=== PATIENT | female | born 1940 | race Caucasian/White ===

== ENCOUNTER → 2016-06-01 | Outpatient (CLI) | payer OTHER ==
[~2016-06-01] MED LIST: AMT50 PO; ATOR-22 PO; B-COCAP2 PO; CALCIUM PO; CHOL1000 PO; COEN50CA22 PO; FRRS300 PO; FSMD/70 PO; IMT100 PO; MULT-506 PO; TAMO20TA47 PO; VITAMIN PO
[2016-06-01 12:59] LABS: BASO % 0.6 %; BASO ABS # 0.02 K/uL (0-0.2); COMPLETE YES; EOS % 8.8 %; HEMATOCRIT 35.8 % (37-47); LYMPH % 39.5 %; LYMPH ABS # 1.43 K/uL (1.2-3.4); MEAN CELL VOLUME 101.1 fL (80-100); MEAN CORPUSCULAR HEMOGLOBIN 33.9 pg (25-34); MEAN CORPUSCULAR HGB CONC 33.5 g/dl (32-36); MEAN PLATELET VOLUME 11.3 fL (7.4-10.4); MONO % 14.9 %; NEUT % 36.2 %; PLATELET COUNT 199 K/uL (130-400); RED BLOOD COUNT 3.54 M/uL (4.2-5.4); WHITE BLOOD COUNT 3.62 K/uL (4.8-10.8)
[2016-06-01 13:30] LABS: ALB/GLOB RATIO 1.1 (0.9-2); ALKALINE PHOSPHATASE 36 U/L (45-117); ALT/SGPT 24 U/L (12-78); AST/SGOT 27 U/L (15-37); BLOOD UREA NITROGEN 7 mg/dl (7-18); BUN/CREATININE RATIO 9.7 (10-20); CALCIUM 8.1 mg/dl (8.5-10.1); CARBON DIOXIDE 25 mmol/L (21-32); CHLORIDE 108 mmol/L (98-107); CHOLESTEROL 171 mg/dl (0-200); CHOLESTEROL/HDL RATIO 1.7; CREATININE 0.72 mg/dl (0.60-1.20); GLUCOSE 88 mg/dl (70-99); HDL CHOLESTEROL 103 mg/dl; LDL CHOLESTEROL CALCULATED 58 mg/dl; POTASSIUM 4.4 mmol/L (3.5-5.1); SODIUM 140 mmol/L (136-145); TRIGLYCERIDES 48 mg/dl (0-150); VERY LOW DENSITY LIPOPROT CALC 10 mg/dl
== END | disposition home or self-care (01) ==
LOC: C.LABPVFM 07:25
PROVIDERS: ATTEND Family Medicine
DX: D50.9 Iron deficiency anemia, unspecified (principal); E78.5 Hyperlipidemia, unspecified; E83.51 Hypocalcemia

== ENCOUNTER → 2016-06-21 | Outpatient (CLI) | payer OTHER | END | disposition home or self-care (01) | LOC: C.MAMM 08:16 | PROVIDERS: ATTEND Family Medicine | DX: M81.0 Age-related osteoporosis without current pathological fracture (principal) ==

== ENCOUNTER → 2016-07-14 | Outpatient (CLI) | payer OTHER ==
[2016-07-14 12:11] LABS: BASO % 0.4 %; BASO ABS # 0.02 K/uL (0-0.2); COMPLETE YES; EOS % 6.2 %; HEMATOCRIT 37.5 % (37-47); LYMPH % 38.9 %; LYMPH ABS # 1.96 K/uL (1.2-3.4); MEAN CELL VOLUME 99.7 fL (80-100); MEAN CORPUSCULAR HGB CONC 33.1 g/dl (32-36); MEAN PLATELET VOLUME 11.2 fL (7.4-10.4); MONO % 13.3 %; NEUT % 41.2 %; PLATELET COUNT 214 K/uL (130-400); RED BLOOD COUNT 3.76 M/uL (4.2-5.4); WHITE BLOOD COUNT 5.04 K/uL (4.8-10.8)
[2016-07-14 12:22] LABS: ALT/SGPT 24 U/L (12-78); BLOOD UREA NITROGEN 9 mg/dl (7-18); BUN/CREATININE RATIO 11.9 (10-20); CALCIUM 8.7 mg/dl (8.5-10.1); CARBON DIOXIDE 29 mmol/L (21-32); CHLORIDE 107 mmol/L (98-107); CREATININE 0.74 mg/dl (0.60-1.20); GLUCOSE 92 mg/dl (70-99); POTASSIUM 4.1 mmol/L (3.5-5.1); SODIUM 142 mmol/L (136-145)
[2016-07-14 12:25] LABS: ALKALINE PHOSPHATASE 36 U/L (45-117); AST/SGOT 22 U/L (15-37)
== END | disposition home or self-care (01) ==
LOC: C.LABPVFM 07:25
PROVIDERS: ATTEND Internal Medicine Hematology & Oncology
DX: D05.11 Intraductal carcinoma in situ of right breast (principal)

== ENCOUNTER → 2016-12-01 | Outpatient (CLI) | payer OTHER ==
[2015-12-09 13:07] VITALS: BP 118/72; PULSE 77
[2016-12-01 13:22] VITALS: BP 143/75; PULSE 68; TEMP 36.8; O2SAT 95
--- NOTE | 2016-12-01 14:53 | Radiation Oncology Follow-Up ---
Radiation Oncology Follow-Up Date of Visit Dec 01, 2016. Reason For Visit Annual follow-up Radiation Completion Date 03/15/14 Diagnosis (1) Carcinoma in situ Status: Acute Onset Date: 02/10/2014 Stage: 0 Permanent Comment: Staging: Right breast, DCIS, grade 3, ER/CA positive, stage 0 Treatment: 1. Lumpectomy/SLN 2. Radiation therapy - APBI - 3850 cGy - 03/15/2014 3. Currently on Tamoxifen. Other Notes: Family history of breast cancer Abnormal right breast mammogram 12/16/2013 showing microcalcifications status post stereotactic biopsy 01/06/2014 revealing DCIS estrogen receptor positive and progesterone receptor positive Last Edited By: Meng Godfrey on Dec 10, 2015 08:24 Interim History She had an abnormal mammogram 01/15/2016. She had an ultrasound-guided biopsy of the solid versus cystic mass in the 6 o'clock position of the right breast. Path report revealed benign appearing lymph node tissue with no lymphoid hyperplasia and focal changes of her metastatic lymphadenitis. Specimen [id number] -[id number]. She had noted no masses on self-examination. She's had no areas of tenderness. There are been no changes of the axilla and no swelling of her arm. She is on tamoxifen and denies side effects. Allergies Coded Allergies: Amoxicillin (Verified Allergy, Unknown, nausea, hives, 01/29/14) Codeine (Verified Adverse Reaction, Mild, MIGRAINES, 01/29/14) Morphine (Verified Adverse Reaction, Mild, MIGRAINES, 01/29/14) Home Medications Scheduled Alendronate/Cholecalciferol (Fosamax+D 70MG/2800 Iu), 1 TABLET PO WK Amitriptyline Hcl (Elavil), 50 MG PO HS Atorvastatin (Lipitor), 20 MG PO DAILY Cholecalciferol (Vitamin D3), 1 TAB PO 2XWK Coenzyme Q10 (Ubidecarenone) (Coq10), 1 CAP PO DAILY Ferrous Sulfate (Ferrous Sulfate), 325 MG PO Q2D Multivitamin (Multivitamin), 1 TAB PO DAILY Sumatriptan Succinate (Imitrex), 100 MG PO PRN Tamoxifen (Nolvadex), 20 MG PO DAILY Vitamin B Cmplx/Vitc/Folic Ac (Nephrocaps), 1 CAP PO DAILY [calcium & vitamin d3], 1 TAB PO BID Review of Systems Gastrointestinal: Symptoms: WNL Oral: Symptoms: No Problems Respiratory: Symptoms: WNL Other Respiratory: Has "dry cough every once in a while" Urinary: Symptoms: WNL Skin: Symptoms: No Problems Breast: Right Upper Arm Measurement: 29.4 Right Mid Arm Measurement: 23.3 Right Wrist Measurement: 16.6 Left Upper Arm Measurement: 31.2 Left Mid Arm Measurement: 23.8 Left Wrist Measurement: 16.1 Arm Dominence: Right Physical Exam Vital Signs Date Time Temp Pulse Resp B/P (MAP) Pulse Ox O2 Delivery O2 Flow Rate FiO2 12/01/16 13:22 36.8 68 16 143/75 95 Pain: Pain Location: None Patient Pain Scale: 0 - 10 Initial Pain Intensity: 0.0 Fatigue: None General Appearance: no apparent distress Eyes: normal inspection, EOMI ENT: normal ENT inspection, hearing grossly normal Neck: supple, no adenopathy, thyroid normal Respiratory/Chest: lungs clear, no respiratory distress, no accessory muscle use Breast: Breast examination reveals well-healed incisions of the right breast. There is a fibrous tissue along the lateral aspect of the breast in the area of her incision. There are no masses or tenderness and no axillary adenopathy. She has no skin retractions or nipple changes. There is no telangiectasia. Using the Holbrook score cosmesis she has a good outcome. The left breast showed no masses or tenderness and no axillary adenopathy. Cardiovascular: regular rate, rhythm, no gallop, no murmur Abdomen: non tender, soft Extremities: no pedal edema Neurologic/Psychiatric: no motor/sensory deficits, alert, normal mood/affect Skin: warm/dry Additional Studies Patient: SIMONA WILSON [facility] Rec: [id number] Address1: [address] [place] [address] Address2: [facility] ID: [id number] Date: 1940 Sex: F Ref Phy: Att Phy: Haydee Brower PA-C Frida Phy: Abigail Esparza M.D. Inter Phy: Ivette Sun MD [facility] Zip: [place] [address] SC: [place] Report #: [id number] Fiscal Accountant: MARCE Diagnosis: RIGHT MASS Service Date: 01/15/16 MNE: [id number] Ordering Dr: Haydee Brower PA-C CC: Haydee Brower PA-C CONF: DICTATED BY: Ivette Sun MD MAMMOGRAPHY REPORT UNILATERAL RIGHT DIGITAL DIAGNOSTIC MAMMOGRAM: 01/15/2016 CLINICAL HISTORY: Status post ultrasound-guided core needle biopsy in the 6:00 right breast. Comparison is made to exams dated: 01/11/2016 mammogram, 01/07/2015 mammogram, localization, 01/06/2014 stereotactic biopsy, 12/16/2013 mammogram, and mammogram - [facility]. FINDINGS: Please refer to the report from right breast ultrasound guided core biopsy performed at the same time for full detail. IMPRESSION: POST PROCEDURE IMAGING FOR MARKER PLACEMENT Please refer to the report from right breast ultrasound guided core biopsy performed at the same time for full detail. Approximately 10% of breast cancers are not detected with mammography. A negative mammographic report should not delay biopsy if a clinically suggestive mass is present. Ivette Sun M.D. ay/:01/15/2016 09:26:46 Risk Adjustment Specialist: Ro GIRON(Dao)(Sabino), [facility] BI-RADS Code: Post Procedure Imaging For Marker Placement Dictated by: Ivette Sun MD Signed by: Ivette Sun MD [facility] SURGICAL PATHOLOGY REPORT Name SIMONA WILSON Case: [id number] SURGICAL PATHOLOGY REPORT Page 2 of 3 [place] [address] Wojciech Perez M.D. mine safety engineer PATHOLOGY REPORT SURGICAL PATHOLOGY REPORT Page 1 of 1 Name SIMONA WILSON Age/Sex 75/F Location: C.MAMM MR# [id number] : 1940 Rm/Bed Physician: Haydee Brower PA-C Case: [id number] Received 01/15/16 Specimen Date 01/15/16 CLINICAL HISTORY Right 6 oclock breast mass, rule out fibroadenoma versus cancer (history of right DCIS 2 years ago). GROSS DESCRIPTION US-GUIDED CORE BIOPSY RIGHT BREAST 6 OCLOCK The specimen is received in a container labeled as right breast with patient name Simona Wilson The specimen consists of six cylindrical fragments of yellow and dark red soft tissue which range from 0.2 to 1.5 cm in length and average 0.1 cm in diameter. The specimen is entirely submitted in a single cassette for levels. The specimen is fixed in formalin for a total of 59 hours. SH/mas MICROSCOPIC DESCRIPTION The specimen consists of a mixture of adipose and lymph node tissue. The lymph node sinuses are open. There seems to be an intact follicular and pericortical architecture. Focally there are increased numbers of histiocytes with increased brownish cytoplasmic pigment. An iron stain is negative. No polarizable material is noted. No granuloma formation is present. CD3, CD20 and PAX5 immunostains show an appropriate distribution of T-cells and B-cells into follicular and pericortical regions. A BCL2 immunostain shows positive staining in B cells but these areas are consistent with primary follicles and not germinal centers. A S100 immunostain highlights small groups of positive cells in keeping with interdigitating dendritic cells and/or Langerhans cells. No metastatic carcinoma is identified. The findings could be livestock sales representative of dermatopathic lymphadenitis/ lymphadenopathy which is associated with lymph nodes draining sites of skin irritation, inflammation or infection. Immunohistochemical stains at [facility] ([facility]) are performed for diagnostic reasons (i.e. detection of malignancy, tumor subtyping, infection identification), therapy selection (i.e. estrogen receptor) and genetic disorder evaluation (i.e. Maynard syndrome). The quantity and specific types of immunohistochemistry stains are purposely chosen in the context of the clinical history, morphologic findings and best clinical practice. Immunohistochemical stains are performed at [facility] on a [employer] automated system with performance determined by the [facility] Laboratory. Some stains may be performed by other laboratories ([employer], [facility], [facility] or [facility] ) with development and performance characteristics determined by that laboratory. When necessary, on-line positive controls are reviewed at that particular laboratory. These tests have not been cleared or approved for specific use by the U.S. Food and Drug Administration. The FDA has determined that such approval is not necessary. The test is used for clinical purposes. It should not be regarded as investigational or for research. This laboratory is certified under CLIA 1988 as qualified to perform high complexity testing. Immunohistochemistry performed on decalcified specimens is done with antigen retrieval which has been internally validated in the [facility] laboratory. Immunocytochemistry may be performed on alcohol fixed smears, cytospins or Thin Prep slides. Immunocytochemistry on all of these types of slides has been internally validated in the [facility] laboratory. FINAL DIAGNOSIS BREAST, RIGHT, 6 OCLOCK, ULTRASOUND GUIDED CORE BIOPSY: 1. BENIGN APPEARING LYMPH NODE TISSUE WITH LYMPHOID HYPERPLASIA AND FOCAL CHANGES OF DERMATOPATHIC LYMPHADENITIS. 2. SEE MICROSCOPIC DESCRIPTION FOR FURTHER DETAILS. PM/bf COPIES TO Abigail Esparza M.D. [address] [place] [id number] [facility], ([facility]) , Haydee Brower PA-C [address] [place] [id number] Signed: <signature on file> 01/19/16 Wojciech Perez M.D. Assessment & Plan Plan: Continue with mammography. She has a mammogram scheduled for December. She continues on tamoxifen. Continue follow-up with Dr. Romero and her primary care physician. We asked her to return to our office in 1 year. She may call if she has any questions or concerns. Total Time In Follow-Up I spent 20 minutes speaking to the patient performing examination. I spent 15 minutes reviewing information and completing this note. Copy To Abigail Esparza M.D.; Galo Contreras D.O. 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
== END | disposition home or self-care (01) ==
LOC: C.ONC 13:18
PROVIDERS: ATTEND Physician Assistant Medical
DX: Z08 Encounter for follow-up examination after completed treatment for malignant neoplasm (principal); Z92.3 Personal history of irradiation; Z85.89 Personal history of malignant neoplasm of other organs and systems

== ENCOUNTER → 2016-12-06 | Outpatient (CLI) | payer OTHER ==
[2016-12-06 13:00] LABS: BASO % 0.3 %; BASO ABS # 0.02 K/uL (0-0.2); COMPLETE YES; EOS % 3.3 %; HEMATOCRIT 37.5 % (37-47); IG% 0.1 %; LYMPH % 23.2 %; LYMPH ABS # 1.82 K/uL (1.2-3.4); MEAN CELL VOLUME 104.5 fL (80-100); MEAN CORPUSCULAR HEMOGLOBIN 33.4 pg (25-34); MEAN PLATELET VOLUME 12.3 fL (7.4-10.4); NEUT % 62.1 %; PLATELET COUNT 195 K/uL (130-400); RED BLOOD COUNT 3.59 M/uL (4.2-5.4); WHITE BLOOD COUNT 7.83 K/uL (4.8-10.8)
[2016-12-06 13:05] LABS: ALT/SGPT 22 U/L (12-78); BLOOD UREA NITROGEN 8 mg/dl (7-18); BUN/CREATININE RATIO 11.6 (10-20); CALCIUM 8.4 mg/dl (8.5-10.1); CARBON DIOXIDE 29 mmol/L (21-32); CHLORIDE 107 mmol/L (98-107); CHOLESTEROL 126 mg/dl (0-200); CREATININE 0.69 mg/dl (0.60-1.20); GLUCOSE 85 mg/dl (70-99); SODIUM 139 mmol/L (136-145)
[2016-12-06 13:08] LABS: ALKALINE PHOSPHATASE 33 U/L (45-117); AST/SGOT 23 U/L (15-37); HDL CHOLESTEROL 63 mg/dl; LDL CHOLESTEROL CALCULATED 51 mg/dl; TRIGLYCERIDES 59 mg/dl (0-150); VERY LOW DENSITY LIPOPROT CALC 12 mg/dl
== END | disposition home or self-care (01) ==
LOC: C.LABPVFM 07:27
PROVIDERS: ATTEND Family Medicine
DX: E78.5 Hyperlipidemia, unspecified (principal)

== ENCOUNTER → 2017-01-09 | Outpatient (CLI) | payer OTHER ==
[2017-01-09 18:20] LABS: BASO % 0.6 %; BASO ABS # 0.03 K/uL (0-0.2); COMPLETE YES; EOS % 4.8 %; HEMATOCRIT 35.5 % (37-47); IG% 0.2 %; LYMPH % 40.1 %; LYMPH ABS # 2.18 K/uL (1.2-3.4); MEAN CELL VOLUME 102.9 fL (80-100); MEAN CORPUSCULAR HGB CONC 32.1 g/dl (32-36); MEAN PLATELET VOLUME 11.1 fL (7.4-10.4); MONO % 12.5 %; NEUT % 41.8 %; PLATELET COUNT 221 K/uL (130-400); RED BLOOD COUNT 3.45 M/uL (4.2-5.4); WHITE BLOOD COUNT 5.43 K/uL (4.8-10.8)
[2017-01-09 18:25] LABS: ALT/SGPT 21 U/L (12-78); BLOOD UREA NITROGEN 9 mg/dl (7-18); BUN/CREATININE RATIO 11.8 (10-20); CALCIUM 8.7 mg/dl (8.5-10.1); CARBON DIOXIDE 30 mmol/L (21-32); CHLORIDE 103 mmol/L (98-107); GLUCOSE 93 mg/dl (70-99); POTASSIUM 4.4 mmol/L (3.5-5.1); SODIUM 138 mmol/L (136-145)
[2017-01-09 18:28] LABS: ALKALINE PHOSPHATASE 37 U/L (45-117); AST/SGOT 22 U/L (15-37)
== END | disposition home or self-care (01) ==
LOC: C.LABPVFM 14:14
PROVIDERS: ATTEND Internal Medicine Hematology & Oncology
DX: D05.11 Intraductal carcinoma in situ of right breast (principal)

== ENCOUNTER → 2017-01-17 | Outpatient (CLI) | payer OTHER ==
--- NOTE | 2017-01-18 07:57 | MAMMOGRAPHY REPORT ---
BILATERAL DIGITAL SCREENING MAMMOGRAM TOMOSYNTHESIS WITH CAD: 01/17/2017 CLINICAL HISTORY: Asymptomatic. Personal history of breast cancer. TECHNIQUE: Breast tomosynthesis in addition to standard 2D mammography was performed. Current study was also evaluated with a Computer Aided Detection (CAD) system. COMPARISON: Comparison is made to exams dated: 01/15/2016 mammogram, 01/15/2016 ultrasound biopsy, 12/23 ultrasound, 01/11/2016 mammogram, 07/09/2015 mammogram, and 01/07/2015 mammogram - [facility]. BREAST COMPOSITION: There are scattered areas of fibroglandular density in both breasts. FINDINGS: There is expected architectural distortion and surgical clips in the upper outer posterior right breast, at the site of prior lumpectomy. A stable biopsy marker clip is seen in the central ri ght breast. There are a few scattered stable punctate microcalcifications bilaterally. No new suspi cious mass, architectural distortion or cluster of suspicious microcalcifications is seen. IMPRESSION: ACR BI-RADS CATEGORY 1: NEGATIVE There is no mammographic evidence of malignancy. A 1 year screening mammogram is recommended. The pa tient will receive written notification of the results. Approximately 10% of breast cancers are not detected with mammography. A negative mammographic report should not delay biopsy if a clinically suggestive mass is present. Ivette Sun M.D. ay/:01/17/2017 22:09:55 Risk Prevention Engineer: Hyacinth MARTINEZ)(Sabino), [facility] letter sent: Normal 1/2 BI-RADS Code: ACR BI-RADS Category 1: Negative
== END | disposition home or self-care (01) ==
LOC: C.MAMM 10:38
PROVIDERS: ATTEND Internal Medicine Hematology & Oncology
DX: Z12.31 Encounter for screening mammogram for malignant neoplasm of breast (principal); Z85.3 Personal history of malignant neoplasm of breast

== ENCOUNTER → 2017-06-08 | Outpatient (CLI) | payer OTHER ==
[~2017-06-08] MED LIST changes: -TAMO20TA47 PO; +TAMO20TA9 PO
[2017-06-08 13:21] LABS: ALBUMIN 3.3 gm/dl (3.4-5.0); ALKALINE PHOSPHATASE 35 U/L (45-117); ALT/SGPT 22 U/L (12-78); AST/SGOT 19 U/L (15-37); BLOOD UREA NITROGEN 10 mg/dl (7-18); CALCIUM 8.5 mg/dl (8.5-10.1); CARBON DIOXIDE 29 mmol/L (21-32); CHOLESTEROL 139 mg/dl (0-200); GLUCOSE 91 mg/dl (70-99); LDL CHOLESTEROL CALCULATED 53 mg/dl; SODIUM 140 mmol/L (136-145); TOTAL PROTEIN 6.9 gm/dl (6.4-8.2)
== END | disposition home or self-care (01) ==
LOC: C.LABPVFM 07:37
PROVIDERS: ATTEND Family Medicine
DX: D50.9 Iron deficiency anemia, unspecified (principal); E78.5 Hyperlipidemia, unspecified; D05.10 Intraductal carcinoma in situ of unspecified breast; R51 Headache; K21.9 Gastro-esophageal reflux disease without esophagitis

== ENCOUNTER → 2017-06-13 | Outpatient (CLI) | payer OTHER ==
--- NOTE | 2017-06-13 12:04 | DIAGNOSTIC IMAGING REPORT ---
CHEST 2 VIEWS ROUTINE HISTORY: Short of breath. COMPARISON: None. FINDINGS: No focal lung consolidations to suggest pneumonia. The lungs are mildly hyperexpanded. The heart is normal in size. No pleural effusions. No pneumothorax. Small biapical densities likely represent scarring. 5 mm nodular density within the periphery of the left midlung zone. This is denser than bone and may represent a calcified granuloma. IMPRESSION: No focal lung consolidations to suggest pneumonia. Electronically signed by: Rob Mejias M.D. 06/13/2017 12:03 PM Dictated Date/Time: 06/13/2017 11:58 AM
== END | disposition home or self-care (01) ==
LOC: C.RADPV 11:26
PROVIDERS: ATTEND Family Medicine
DX: R06.02 Shortness of breath (principal)

== ENCOUNTER → 2017-07-03 | Outpatient (CLI) | payer OTHER ==
[2017-07-03 17:55] LABS: BASO % 0.6 %; BASO ABS # 0.04 K/uL (0-0.2); EOS % 5.3 %; EOS ABS # 0.36 K/uL (0-0.5); HEMATOCRIT 36.7 % (37-47); HEMOGLOBIN 12.1 g/dL (12.0-16.0); IG# 0.02 K/uL (0.00-0.02); LYMPH % 31.1 %; MEAN CELL VOLUME 101.9 fL (80-100); MEAN CORPUSCULAR HEMOGLOBIN 33.6 pg (25-34); MEAN PLATELET VOLUME 11.8 fL (7.4-10.4); MONO ABS # 0.81 K/uL (0.11-0.59); NEUT % 50.7 %; NEUT ABS # 3.42 K/uL (1.4-6.5); PLATELET COUNT 199 K/uL (130-400); RED CELL DISTRIBUTION WIDTH CV 13.7 % (11.5-14.5); RED CELL DISTRIBUTION WIDTH SD 51.4 fL (36.4-46.3); WHITE BLOOD COUNT 6.75 K/uL (4.8-10.8)
[2017-07-03 18:24] LABS: ALBUMIN 3.5 gm/dl (3.4-5.0); ALT/SGPT 22 U/L (12-78); AST/SGOT 19 U/L (15-37); BLOOD UREA NITROGEN 10 mg/dl (7-18); CALCIUM 8.2 mg/dl (8.5-10.1); CARBON DIOXIDE 26 mmol/L (21-32); CREATININE 0.65 mg/dl (0.60-1.20); GLUCOSE 93 mg/dl (70-99); POTASSIUM 4.1 mmol/L (3.5-5.1); SODIUM 136 mmol/L (136-145)
[2017-07-03 18:27] LABS: ALKALINE PHOSPHATASE 37 U/L (45-117); TOTAL PROTEIN 6.7 gm/dl (6.4-8.2)
== END | disposition home or self-care (01) ==
LOC: C.LABPVFM 12:57
PROVIDERS: ATTEND Internal Medicine Hematology & Oncology
DX: D05.11 Intraductal carcinoma in situ of right breast (principal)

== ENCOUNTER → 2017-12-04 | Outpatient (CLI) | payer OTHER ==
[2017-12-04 13:43] LABS: ALBUMIN 3.3 gm/dl (3.4-5.0); ALKALINE PHOSPHATASE 35 U/L (45-117); ALT/SGPT 23 U/L (12-78); AST/SGOT 23 U/L (15-37); BLOOD UREA NITROGEN 9 mg/dl (7-18); CALCIUM 8.1 mg/dl (8.5-10.1); CARBON DIOXIDE 27 mmol/L (21-32); CHOLESTEROL 132 mg/dl (0-200); CREATININE 0.69 mg/dl (0.60-1.20); GLUCOSE 83 mg/dl (70-99); LDL CHOLESTEROL CALCULATED 45 mg/dl; POTASSIUM 4.2 mmol/L (3.5-5.1); SODIUM 139 mmol/L (136-145); TOTAL PROTEIN 6.8 gm/dl (6.4-8.2)
== END | disposition home or self-care (01) ==
LOC: C.LABPVFM 07:41
PROVIDERS: ATTEND Family Medicine
DX: G43.909 Migraine, unspecified, not intractable, without status migrainosus (principal); E78.5 Hyperlipidemia, unspecified; M81.0 Age-related osteoporosis without current pathological fracture; D05.10 Intraductal carcinoma in situ of unspecified breast; I73.9 Peripheral vascular disease, unspecified

== ENCOUNTER 2022-07-04 20:32 | Observation (INO) ==
[2022-07-04] MEDS ORDERED: ONDANSETRON INJ 2 MG/ML 2 ML VIAL IV STA (20:39)
[2022-07-04] MEDS ORDERED: SODIUM CHLORIDE 0.9% 1000ML 1,000 ML IV ONE (20:39)
[2022-07-04] MEDS ORDERED: KETOROLAC TROMETHAMINE 15 MG/ML VIAL IV STA (20:39)
[2022-07-04 21:32] LABS: Basophils # (auto) 0.04 K/uL (0-0.2); Basophils % (auto) 0.6 %; Eosinophils # (auto) 0.14 K/uL (0-0.50); Eosinophils % (auto) 2.2 %; Hematocrit (blood only) 38.6 % (37.0-47.0); Hemoglobin 12.7 g/dl (12.0-16.0); Immature Granulocytes # (auto) 0.01 K/uL (0.01-0.20); Immature Granulocytes % (auto) 0.2 %; Lymphocytes # (auto) 1.08 K/uL (1.2-3.4); Lymphocytes % (auto) 16.8 %; Mean Corpuscular Hgb Conc 32.9 g/dL (32.0-36.0); Mean Corpuscular Volume 100.3 fL (80.0-100.0); Mean Platelet Volume 10.7 fL (9.4-12.4); Monocytes # (auto) 0.62 K/uL (0.11-0.59); Monocytes % (auto) 9.6 %; Neutrophils # (auto) 4.55 K/uL (1.40-6.50); Neutrophils % (auto) 70.6 %; Platelet Count 242 K/uL (130-400); RDW Coefficient of Variation 12.9 % (11.5-14.5); RDW Standard Deviation 47.6 fL (36.4-46.3); Red Blood Count 3.85 M/uL (4.20-5.40); White Blood Count 6.44 K/ul (4.8-10.8)
[2022-07-04 21:48] LABS: Albumin Level 4.1 gm/dl (3.4-5.0); Bilirubin,Total 0.4 mg/dl (0.2-1.0); Calcium 9.2 mg/dl (8.5-10.1)
[2022-07-04 21:54] LABS: BUN Creatinine Ratio 28.1 (10-20); Creatinine Clr Calc Pharmacy 59.9 ml/min; Est GFR (African American) 95.6 ml/min; Est GFR (Non-African American) 82.5 ml/min; Total Protein 7.2 gm/dl (6.0-8.3)
--- NOTE | 2022-07-04 22:36 | Ultrasound Report ---
Exam(s): US GALLBLADDER EXAM: US Abdomen Limited, Gallbladder CLINICAL HISTORY: Reason for exam: ruq pain. TECHNIQUE: Real-time ultrasound of the right upper quadrant with image documentation. COMPARISON: No relevant prior studies available. FINDINGS: Gallbladder: Distended gallbladder with gallbladder sludge. Mild palpable thickening measures 4 mm. Trace pericholecystic free fluid. Positive Yuen sign. Findings are concerning for acute cholecystitis. Common bile duct: 5 mm common bile duct. No stones. No dilation. Pancreas: Unremarkable as visualized. IMPRESSION: Distended gallbladder with gallbladder sludge. Mild palpable thickening measures 4 mm. Trace pericholecystic free fluid. Positive Yuen sign. Findings are concerning for acute cholecystitis. Electronically signed by: Roni Moore MD 07/04/22 22:35 PM
[2022-07-04] MEDS ORDERED: METOCLOPRAMIDE HCL INJ 5 MG/ML 2 ML VIAL IV ONE (23:02)
[2022-07-04] MEDS ORDERED: diphenhydrAMINE 50 MG/ML VIAL IV STA (23:02)
[2022-07-04] MEDS ORDERED: metroNIDAZOLE 500 MG/100 ML BAG IV STA (23:07)
[2022-07-04] MEDS ORDERED: CIPROFLOXACIN / D5W 400 MG/200 ML BAG IV STA (23:07)
--- NOTE | 2022-07-04 23:27 | Surgery Consultation ---
Date of Consultation July 04, 2022 Assessment & Plan (1) Acute cholecystitis: I discussed with the treating emergency room physician and team having the patient admitted on the hospitalist service. We recommend proceeding as follows: Provide analgesics provide antiemetics Implement n.p.o. status Provide IV fluid for hydration Follow serial labs Would recommend initiating antibiotics. The treating emergency room physician has ordered ciprofloxacin and Flagyl. It appears that the patient would benefit from a cholecystectomy. I discussed the case with my attending physician Dr. Emiliano Galindo. It is nowhere the mention the patient notes that she has had previous surgery by Dr. Bowman and has inquired if he is available to do her surgery and this will be discussed tomorrow morning. Timing of any procedures is to be determined based on further discussion. Would recommend utilizing SCDs only for DVT prevention until timing of any procedural intervention is ascertained Supervising Physician Co-Signing Physician Notes I personally saw and evaluated the patient with Prabhjot Singh PA-C and agree with the assessment and plan. 82-year-old female with acute cholecystitis Ultrasound images and results were personally viewed by myself She is being admitted to the medical team, keep n.p.o., start IV antibiotics We will tentatively plan on laparoscopic cholecystectomy tomorrow History of Present Illness Reason for Consultation: Acute cholecystitis History of Present Illness This is an 82-year-old female who presented to the emergency department secondary to abdominal pain. The patient notes that the pain is located in the right upper quadrant with radiation to her back. She notes that this occurred after eating her noon meal on 07/04/2022. With her pain she had associated nausea and vomiting. She denies any fevers, shakes, or chills. She denied any palliative or provocative factors. I asked the patient if she has been having any postprandial pain over the past several months which she denied but she notes that she has been having some intermittent nausea for several weeks. Patient notes that she has had previous surgeries. She notes that she had a duodenal ulcer in the past which resulted in some type of gastric outlet/small bowel obstruction requiring exploratory laparotomy where she had a partial gastrectomy. She said that this was performed in 2003. She denies taking any anticoagulants. In the emergency department patient had labs and imaging which independent reviewed. CBC revealed white blood cell count, hemoglobin, hematocrit, and platelet count were all normal. Chemistry profile showed sodium is 133 with a normal potassium. BUN and creatinine were both within the normal range. The patient's total and direct bilirubin were both not elevated. Her AST and ALT along with her alkaline phosphatase and lipase were nonelevated. A chest x-ray showed no evidence of pneumonia. The patient did undergo a CT scan of the abdomen pelvis that showed a distended gallbladder with gallbladder sludge noted. There is some gallbladder wall thickening up to 4 mm and trace pericholecystic fluid. An civil drafting technician noted a positive ultrasonographic Yuen sign. A COVID test is pending. At the time of my interview the patient was resting comfortably in bed and she was in no distress. Allergies Allergy/AdvReac Type Severity Reaction Status Date / Time amoxicillin Allergy Intermediate HIVES/NAUSE Verified 07/04/22 21:55 A codeine AdvReac Intermediate MIGRAINES Verified 07/04/22 21:55 morphine AdvReac Intermediate MIGRAINES Verified 07/04/22 21:55 Home Medications Medication Instructions Recorded Confirmed Type calcium carbonate 600 mg-vitamin 1 tab PO BID 12/08/18 07/04/22 History D3 10 mcg (400 unit) tablet cholecalciferol (vitamin D3) 50 2,000 units PO 2XWK #30 caps 12/08/18 07/04/22 History mcg (2,000 unit) capsule ferrous sulfate 325 mg (65 mg 325 mg PO 2XWK 12/08/18 07/04/22 History iron) tablet,delayed release famotidine 20 mg tablet 20 mg PO DAILY #90 tabs 12/28/21 07/04/22 Rx omeprazole 40 mg capsule,delayed 40 mg PO DAILY #90 caps 02/22/22 07/04/22 Rx release buspirone 5 mg tablet See Rx Instructions PO BID anxiety 03/22/22 07/04/22 Rx #180 tabs denosumab 60 mg/mL subcutaneous 60 mg subcut .COMPLEX #1 mL 05/30/22 07/04/22 Rx syringe (Prolia) Patient History Medical History History of colon cancer Never a smoker No history of alcohol use No illicit drug use Surgical History History of abdominal surgery History of partial mastectomy of right breast S/P lumpectomy, right breast S/P partial gastrectomy Family History Mother Cancer Ovarian cancer Pancreatic cancer Father Myocardial infarction Acute Cardiac disorder Denies family history of Prostate cancer Breast cancer Colorectal cancer Social History Smoking Status: Never smoker Second Hand Exposure: No; Hx Alcohol Use: No Hx Substance Use: No Preferred Language: Panamanian Communication Ability: Effective Observer Electrical Prospecting Required: No Beliefs That Will Affect Care: None marital status: Current Living Situation: Spouse Current Living Situation Comment: Lives at home with current occupational status: retired How many Children do You have: 1 Other Information That Helps Us Care for You: No Feels Safe at Home: Yes Safety Concerns: Feels Safe At This Time Childhood Exposure to Second-Hand Smoke: No caffeine: Yes Dental Care, Regularly: Yes Physical Activity Frequency: Daily Seatbelt Use: sometimes Sunscreen Use: No Assistive Devices: Denture - Upper and Glasses Assistive Devices Comment: dentures at home, glasses here Review of Systems Constitutional: no fever and no chills Eyes: no eye pain Ear, Nose, Mouth, Throat: no ear pain Respiratory: no cough and no dyspnea Cardiovascular: no chest pain Gastrointestinal: + abdominal pain, + nausea and + vomiting Genitourinary: no dysuria Musculoskeletal: + back pain (Radiating from abdomen) Integumentary: no rash Neurologic: no localized weakness Physical Exam Constitutional: WD/WN, vitals as above Eyes: + anicteric sclerae; no conjunctival abnormality Wears glasses ENMT: Ears: no hearing impairment and no external ear abnormality Mouth: no oropharynx abnormality Sublingual jaundice is absent Neck: trachea midline Respiratory: normal respiratory effort; no respiratory distress and no labored breathing Cardiovascular: Rate/Rhythm: regular rate and regular rhythm Gastrointestinal (Abdomen): Abdomen is soft, nondistended, nonrigid. There is no rebound tenderness or guarding. The patient did have pain with palpation in the right upper quadrant with a positive Yuen sign Musculoskeletal: No calf tenderness Skin: no rashes Neurologic: moves all extremities Psychiatric: A+Ox3, euthymic affect Results & Data ([facility]) Vital Signs (Past 12 Hours) Vital Signs Temp Pulse Pulse Resp BP BP Pulse Ox 07/04/22 21:09 66 18 99 07/04/22 21:09 65 18 163/77 H 99 07/04/22 20:36 36.5 C 61 20 158/77 H 99 O2 Del Method 07/04/22 21:09 Room Air 07/04/22 21:09 Room Air 07/04/22 20:36 PG Care Time/CCT Total # of Minutes Spent Total Time Spent with Patient: Total time spent is greater than 50% in coordination of care (as documented) at patient's floor/unit and/or counseling patient: Coding Level of Care Code 88667 INT INP/OBS CARE 3/75MIN Diagnoses Acute cholecystitis K81.0
--- NOTE | 2022-07-04 23:33 | History & Physical Report ---
Date of Service July 04, 2022 Assessment & Plan (1) Acute cholecystitis: Plan: 82 y/o female w/ PMHx of gastric bypass, macrocytic anemia, GERD, anxiety, migraines, PAD, and HLD who presents w/ RUQ pain since today 2/2 acute cholecystitis. Suggested by RUQ US; pos Yuen's sign, distended gallbladder, mild palpable thickening 4mm. No leukocytosis. VSS. Amox allergy, was started on IV cipro+Flagyl Gen surg consulted; IV abx. Will reassess in AM. Patient inquired if her previous surgeon would be available. (2) History of gastric bypass: Plan: Noted. Also w/ reported ulceration prior to bypass. Will hold off on NSAIDs. (3) Macrocytic anemia: Plan: Chronic. Currently not anemic. MCV persistently mildly elevated. Has had normal folate and elev B12 in past. Continue iron supp 2x/wk. (4) GERD (gastroesophageal reflux disease): Plan: Continue home PPI and H2 bailey. (5) Anxiety: Plan: Continue Buspar. (6) Hypercholesterolemia: Plan: Not on statin. Per prior notes, was deescalated off statins several years ago w/ consideration of her age. Plan FEN/GI: NPO. Hold off on fluids w/ questionable hypervolemic status and reported chronic dyspnea. Check BNP in AM. No echo in EMR. ppx: SCDs only while awaiting surg eval code: full dispo: med tele History of Present Illness Chief Complaint: right upper quadrant pain Primary Care Provider: MARTHA Moscoso 82 y/o female w/ PMHx of gastric bypass, macrocytic anemia, GERD, anxiety, migraines, PAD, and HLD who presents w/ RUQ pain that started today. It radiates to her right side/back. This started after lunch at noon. She has had nausea and dry heaving. She denies having fever or chills. She has mild dyspnea at baseline. Patient states she had gastric bypass many years ago because of ulceration near gastroesophageal junction. Currently, she still has RUQ pain, though is more comfortable. She has had several months of nausea. ED course: IV cipro+Flagyl. 1L NSS bolus. Gen surg consulted in ED. IV abx. Further plan TBD in AM. Allergies Allergy/AdvReac Type Severity Reaction Status Date / Time amoxicillin Allergy Intermediate HIVES/NAUSE Verified 07/04/22 21:55 A codeine AdvReac Intermediate MIGRAINES Verified 07/04/22 21:55 morphine AdvReac Intermediate MIGRAINES Verified 07/04/22 21:55 Home Medications Medication Instructions Recorded Confirmed Type calcium carbonate 600 mg-vitamin 1 tab PO BID 12/08/18 07/04/22 History D3 10 mcg (400 unit) tablet cholecalciferol (vitamin D3) 50 2,000 units PO 2XWK #30 caps 12/08/18 07/04/22 History mcg (2,000 unit) capsule ferrous sulfate 325 mg (65 mg 325 mg PO 2XWK 12/08/18 07/04/22 History iron) tablet,delayed release famotidine 20 mg tablet 20 mg PO DAILY #90 tabs 12/28/21 07/04/22 Rx omeprazole 40 mg capsule,delayed 40 mg PO DAILY #90 caps 02/22/22 07/04/22 Rx release buspirone 5 mg tablet See Rx Instructions PO BID anxiety 03/22/22 07/04/22 Rx #180 tabs denosumab 60 mg/mL subcutaneous 60 mg subcut .COMPLEX #1 mL 05/30/22 07/04/22 Rx syringe (Prolia) Past Med/Surg History Medical History History of colon cancer Never a smoker No history of alcohol use No illicit drug use Surgical History History of abdominal surgery History of partial mastectomy of right breast S/P lumpectomy, right breast S/P partial gastrectomy Family History Mother Cancer Ovarian cancer Pancreatic cancer Father Myocardial infarction Acute Cardiac disorder Denies family history of Prostate cancer Breast cancer Colorectal cancer Social History Smoking Status: Never smoker Second Hand Exposure: No; Hx Alcohol Use: No Hx Substance Use: No Preferred Language: Serbian Communication Ability: Effective Director Patient Financial Services Required: No Beliefs That Will Affect Care: None marital status: Current Living Situation: Spouse Current Living Situation Comment: Lives at home with current occupational status: retired How many Children do You have: 1 Other Information That Helps Us Care for You: No Feels Safe at Home: Yes Safety Concerns: Feels Safe At This Time Childhood Exposure to Second-Hand Smoke: No caffeine: Yes Dental Care, Regularly: Yes Physical Activity Frequency: Daily Seatbelt Use: sometimes Sunscreen Use: No Assistive Devices: Denture - Upper and Glasses Assistive Devices Comment: dentures at home, glasses here Review of Systems Review of Systems: All systems reviewed & are unremarkable except as noted in HPI & below Physical Exam Physical Exam: General: Grossly A&O. NAD. Cooperative. HEENT: Atraumatic, normocephalic. EOMI. + JVD on right at 2 finger breadths. Pulm: CTAB. -wheezes, -rales, -rhonchi. No respiratory distress. Cardiac: RRR, -mrg. 1-2+ bilat lower extremity edema. Abdominal: Nondistended, soft. RUQ TTP, no rebound. Patient winced on deeper palpation of RUQ. Msk: Moving all extremities. Neuro: Strength and sensation of extremities intact. Results & Data Results & Data ([facility]) Vital Signs (Past 12 Hours) Vital Signs Temp Pulse Pulse Resp BP BP Pulse Ox 07/04/22 20:39 69 07/04/22 21:09 66 18 99 07/04/22 21:09 65 18 163/77 H 99 07/04/22 20:36 36.5 C 61 20 158/77 H 99 O2 Del Method 07/04/22 20:39 07/04/22 21:09 Room Air 07/04/22 21:09 Room Air 07/04/22 20:36 Laboratory Results Cardiac Enzymes 07/04/22 Range/Units 21:03 AST 19 (13-39) U/L CBC 07/04/22 Range/Units 21:03 WBC 6.44 (4.8-10.8) K/ul RBC 3.85 L (4.20-5.40) M/uL Hgb 12.7 (12.0-16.0) g/dl Hct 38.6 (37.0-47.0) % Plt Count 242 (130-400) K/uL Neut # (Auto) 4.55 (1.40-6.50) K/uL Lymph # (Auto) 1.08 L (1.2-3.4) K/uL [place] # (Auto) 0.62 H (0.11-0.59) K/uL Eos # (Auto) 0.14 (0-0.50) K/uL Baso # (Auto) 0.04 (0-0.2) K/uL Comprehensive Metabolic Panel 07/04/22 Range/Units 21:03 Sodium 133 L (136-145) mmol/L Potassium 4.0 (3.5-5.1) mmol/L Chloride 98 (98-107) mmol/L Carbon Dioxide 30 (21-32) mmol/L BUN 18 (6-23) mg/dl Creatinine 0.64 (0.6-1.2) mg/dl Glucose 132 H (70-99(Fasting)) mg/dl Calcium 9.2 (8.5-10.1) mg/dl Direct Bilirubin 0.0 (0-0.2) mg/dl AST 19 (13-39) U/L ALT 16 (7-52) U/L Alkaline Phosphatase 47 (34-104) U/L Total Protein 7.2 (6.0-8.3) gm/dl Albumin 4.1 (3.4-5.0) gm/dl Intake and Output 07/04/22 07/04/22 07/05/22 14:59 22:59 06:59 Intake Total 1000 / 1000 Balance 1000 / 1000 Intake: IV 1000 / 1000 Sodium Chloride 0.9% 1000ML 1, 1000 / 1000 000 ml @ 999 mls/hr IV .Q1H1M ONE Rx#:[id number] Other: Weight 59.5 kg Weight Measurement Method Chair Scale Patient Weight 07/05/22 06:59 Weight 59.5 kg Diagnostic Findings Gallbladder Ultrasound 07/04/22 20:53 Exam(s): US GALLBLADDER EXAM: US Abdomen Limited, Gallbladder CLINICAL HISTORY: Reason for exam: ruq pain. TECHNIQUE: Real-time ultrasound of the right upper quadrant with image documentation. COMPARISON: No relevant prior studies available. FINDINGS: Gallbladder: Distended gallbladder with gallbladder sludge. Mild palpable thickening measures 4 mm. Trace pericholecystic free fluid. Positive Yuen sign. Findings are concerning for acute cholecystitis. Common bile duct: 5 mm common bile duct. No stones. No dilation. Pancreas: Unremarkable as visualized. IMPRESSION: Distended gallbladder with gallbladder sludge. Mild palpable thickening measures 4 mm. Trace pericholecystic free fluid. Positive Yuen sign. Findings are concerning for acute cholecystitis. Electronically signed by: Roni Moore MD 07/04/22 22:35 PM ECG Additional Comments: ecg unchanged from 04/17/22. Code Status & VTE Plan Code Status full VTE Prophylaxis Plan VTE Prophylaxis will be ordered: Yes Supervising Physician Co-Signing Physician Notes Attending addendum: I have physically seen this patient, have supervised the medical residents a ctivities, and agree with the H&P unless as otherwise noted. Assessment and Plan: Acute cholecystitis- NPO IV fluids IV antibiotics Cipro and Flagyl IV General surgery consult History of gastric bypass/GERD/history of gastric ulcers- Pantoprazole 40 mg IV daily Anxiety- On BuSpar as outpatient Can have with sips of water Remaining orders and notations as noted - Resident Activity Tracking Resident Involvement: Resident Care Provided Care Provided: Adult Hospital Medicine
--- NOTE | 2022-07-05 00:15 | Emergency Department Note ---
History of Present Illness General Chief Complaint: Flank Pain Stated Complaint: NAUSEA,PAIN BELOW RIB CAGE, BACK PAIN Time Seen by Provider: 07/04/22 20:39 History of Present Illness Provider Complaint: abdominal pain Onset (ago): 7 hour(s) Pain Consistency: intermittent Location: RUQ Radiation: back Severity: severe Maximum Pain Intensity: 10 Current Pain Intensity: 10 Quality: + stabbing and + sharp Relieved By: + nothing Exacerbated By: + eating Context: no foreign travel, no possible food poisoning, no sick contacts, no recent antibiotic use, no recent surgery/procedure, no recent injury or no history of similar episodes Associated Symptoms: + nausea; no vomiting, no diarrhea, no fever, no chills, no constipation, no dysuria, no hematemesis, no hematochezia, no hematuria, no headache and no chest pain Home Medications Medication Instructions Recorded Confirmed Type calcium carbonate 600 mg-vitamin 1 tab PO BID 12/08/18 07/04/22 History D3 10 mcg (400 unit) tablet cholecalciferol (vitamin D3) 50 2,000 units PO 2XWK #30 caps 12/08/18 07/04/22 History mcg (2,000 unit) capsule ferrous sulfate 325 mg (65 mg 325 mg PO 2XWK 12/08/18 07/04/22 History iron) tablet,delayed release famotidine 20 mg tablet 20 mg PO DAILY #90 tabs 12/28/21 07/04/22 Rx omeprazole 40 mg capsule,delayed 40 mg PO DAILY #90 caps 02/22/22 07/04/22 Rx release buspirone 5 mg tablet See Rx Instructions PO BID anxiety 03/22/22 07/04/22 Rx #180 tabs denosumab 60 mg/mL subcutaneous 60 mg subcut .COMPLEX #1 mL 05/30/22 07/04/22 Rx syringe (Prolia) Allergies Allergy/AdvReac Type Severity Reaction Status Date / Time amoxicillin Allergy Intermediate HIVES/NAUSE Verified 07/04/22 21:55 A codeine AdvReac Intermediate MIGRAINES Verified 07/04/22 21:55 morphine AdvReac Intermediate MIGRAINES Verified 07/04/22 21:55 Past Med/Surg History Medical History History of colon cancer Never a smoker No history of alcohol use No illicit drug use Surgical History History of abdominal surgery History of partial mastectomy of right breast S/P lumpectomy, right breast S/P partial gastrectomy Family History Mother Cancer Ovarian cancer Pancreatic cancer Father Myocardial infarction Acute Cardiac disorder Denies family history of Prostate cancer Breast cancer Colorectal cancer Social History Smoking Status: Never smoker Second Hand Exposure: No; Hx Alcohol Use: No Hx Substance Use: No Preferred Language: Croatian Communication Ability: Effective Truck Hop Required: No Beliefs That Will Affect Care: None marital status: Current Living Situation: Spouse current occupational status: retired How many Children do You have: 1 Feels Safe at Home: Yes Childhood Exposure to Second-Hand Smoke: No caffeine: Yes Dental Care, Regularly: Yes Physical Activity Frequency: Daily Seatbelt Use: sometimes Sunscreen Use: No Physical Exam Vital Signs: Vital Signs - 24 hr 07/04/22 20:36 07/04/22 21:09 07/04/22 21:09 Temperature 36.5 C Temperature Source Temporal Artery Sc an Pulse Rate 61 66 Pulse Rate [Apical ] 65 Pulse Rate from Sp O2 Sensor Pulse Rhythm Regular Pulse Rhythm [Apic al] Regular Pulse Strength [Ap ical] Normal Respiratory Rate 20 18 18 Respiratory Effort / Characteristics Non-Labored Respiratory Depth Normal Respiratory Patter n Regular Blood Pressure 158/77 H Blood Pressure [Le ft Arm] 163/77 H Blood Pressure Lindsay n 104 Blood Pressure Lindsay n [Left Arm] 105 Pulse Oximetry 99 99 99 Oxygen Delivery Me thod Room Air Room Air Sepsis Recent Feve r Within 48 Hours No Sepsis New/Unexpla ined Change in Men breezy Status N/A Sepsis Action Take n by Nursing No Action Required 07/04/22 20:39 07/04/22 21:21 07/04/22 21:30 Temperature Temperature Source Pulse Rate 69 65 61 Pulse Rate [Apical ] Pulse Rate from Sp O2 Sensor 65 61 Pulse Rhythm Pulse Rhythm [Apic al] Pulse Strength [Ap ical] Respiratory Rate 15 19 Respiratory Effort / Characteristics Respiratory Depth Respiratory Patter n Blood Pressure Blood Pressure [Le ft Arm] Blood Pressure Lindsay n Blood Pressure Lindsay n [Left Arm] Pulse Oximetry 97 98 Oxygen Delivery Me thod Sepsis Recent Feve r Within 48 Hours Sepsis New/Unexpla ined Change in Men breezy Status Sepsis Action Take n by Nursing 07/04/22 21:40 07/04/22 22:36 07/04/22 22:40 Temperature Temperature Source Pulse Rate 62 63 61 Pulse Rate [Apical ] Pulse Rate from Sp O2 Sensor 66 63 Pulse Rhythm Pulse Rhythm [Apic al] Pulse Strength [Ap ical] Respiratory Rate 18 20 20 Respiratory Effort / Characteristics Respiratory Depth Respiratory Patter n Blood Pressure Blood Pressure [Le ft Arm] Blood Pressure Lindsay n Blood Pressure Lindsay n [Left Arm] Pulse Oximetry 98 84 L Oxygen Delivery Me thod Sepsis Recent Feve r Within 48 Hours Sepsis New/Unexpla ined Change in Men breezy Status Sepsis Action Take n by Nursing 07/04/22 22:50 07/04/22 23:00 07/04/22 23:10 Temperature Temperature Source Pulse Rate 64 69 89 Pulse Rate [Apical ] Pulse Rate from Sp O2 Sensor 63 71 79 Pulse Rhythm Pulse Rhythm [Apic al] Pulse Strength [Ap ical] Respiratory Rate 14 23 28 H Respiratory Effort / Characteristics Respiratory Depth Respiratory Patter n Blood Pressure Blood Pressure [Le ft Arm] Blood Pressure Lindsay n Blood Pressure Lindsay n [Left Arm] Pulse Oximetry 98 96 99 Oxygen Delivery Me thod Sepsis Recent Feve r Within 48 Hours Sepsis New/Unexpla ined Change in Men breezy Status Sepsis Action Take n by Nursing 07/04/22 23:20 07/04/22 23:28 07/04/22 23:28 Temperature Temperature Source Pulse Rate 82 85 Pulse Rate [Apical ] Pulse Rate from Sp O2 Sensor 78 81 Pulse Rhythm Pulse Rhythm [Apic al] Pulse Strength [Ap ical] Respiratory Rate 30 H 32 H Respiratory Effort / Characteristics Respiratory Depth Respiratory Patter n Blood Pressure 138/73 Blood Pressure [Le ft Arm] Blood Pressure Lindsay n 94 Blood Pressure Lindsay n [Left Arm] Pulse Oximetry 98 97 Oxygen Delivery Me thod Sepsis Recent Feve r Within 48 Hours Sepsis New/Unexpla ined Change in Men breezy Status Sepsis Action Take n by Nursing 07/04/22 23:30 07/04/22 23:30 Temperature Temperature Source Pulse Rate 83 Pulse Rate [Apical ] Pulse Rate from Sp O2 Sensor 78 Pulse Rhythm Pulse Rhythm [Apic al] Pulse Strength [Ap ical] Respiratory Rate 22 Respiratory Effort / Characteristics Respiratory Depth Respiratory Patter n Blood Pressure 127/67 Blood Pressure [Le ft Arm] Blood Pressure Lindsay n 87 Blood Pressure Lindsay n [Left Arm] Pulse Oximetry 99 Oxygen Delivery Me thod Sepsis Recent Feve r Within 48 Hours Sepsis New/Unexpla ined Change in Men berezy Status Sepsis Action Take n by Nursing Physical Exam: Physical Exam GENERAL: She is oriented to person, place, and time. She appears well-developed and well-nourished. HENT: Exam performed. -Head: Normocephalic and atraumatic. -Mouth/Throat: The oropharynx is clear and moist. No trismus in the jaw. No dental abscesses or uvula swelling. No oropharyngeal exudate or tonsillar abscesses. EYES: Conjunctivae and EOM are normal. Pupils are equal, round, and reactive to light. Right eye exhibits no discharge. Left eye exhibits no discharge. No scle ral icterus. NECK: Normal range of motion. Neck supple. No JVD present. No rigidity. No tracheal deviation and normal range of motion present. CV: Normal rate, regular rhythm, normal heart sounds and intact distal pulses. There is no peripheral edema. Palpable radial pulses bue. PULM/CHEST: Effort normal and breath sounds normal. No respiratory distress. No stridor. She has no wheezes. She has no rales. ABD: The abdomen is soft. Bowel sounds are normal. She has no distension. There is tenderness on palpation of the epigastric and right upper quadrant. There is no rebound, no guarding. Positive Yuen's sign. no tenderness at McBurney's point. Rovsig negative MUSC/SKEL: Normal range of motion. There is no peripheral edema, tenderness or deformity. LYMPH: No cervical adenopathy. NEURO: She is alert and oriented to person, place, and time. She has normal strength. No cranial nerve deficit or sensory deficit. Coordination and gait normal. GCS eye subscore is 4. GCS verbal subscore is 5. GCS motor subscore is 6. Cerebellar tests wnl. SKIN: Skin is warm and dry. She is not diaphoretic. PSYCH: She has a normal mood and affect. Behavior is normal. Judgment and thought content normal. Course Course 2038: The patient was evaluated in room A11. A complete history and physical exam was performed Cardiac monitoring: An order was placed for continuous cardiac monitoring. The monitor shows a rate of 60 with sinus rhythm interpreted by me 2306: Vital signs stable. Patient continues to have nausea subsequent doses of antiemetics ordered for the patient. Labs show white blood cell count of 6.44 hemoglobin 12.7 platelet count 242. LFTs and alkaline phosphatase are within normal limits. Lipase within normal limits. Ultrasound does show findings consistent with acute cholecystitis.Acute abdominal series shows nonspecific bowel gas pattern with constipation chest x-ray negative. Discussed the case with general surgery Wilder Galindo on-call for Dr. Galidno general surgery who states admit to medicine. Cipro Flagyl ordered for the patient. Dr. Cook mount any hospitalist team will be notified. Administered Medications Ciprofloxacin (Cipro / D5w) 400 mg in 200 mls @ 200 mls/hr IV NOW STA Stop: 07/05/22 00:06 Last Admin: 07/04/22 23:26 Dose: 200 mls/hr Documented By: VICKY Discontinued Medications Diphenhydramine HCl (Diphenhydramine 50 Mg/Ml Vial) 25 mg IV NOW STA Stop: 07/04/22 23:03 Last Admin: 07/04/22 23:07 Dose: 25 mg Documented By: VICKY Sodium Chloride (Nss 1000ml) 1,000 mls @ 999 mls/hr IV .Q1H1M ONE Stop: 07/04/22 21:39 Last Infusion: 07/04/22 21:55 Dose: 0 mls/hr Documented By: RSJoaquín Admin: 07/04/22 21:02 Dose: 999 mls/hr Documented By: VICKY Ketorolac Tromethamine (Ketorolac Tromethamine 15 Mg/Ml Vial) 15 mg IV NOW STA Stop: 07/04/22 20:40 Last Admin: 07/04/22 21:02 Dose: 15 mg Documented By: VICKY Metoclopramide HCl (Metoclopramide Hcl Inj 5 Mg/Ml 2 Ml Vial) 5 mg IV ONE ONE Stop: 07/04/22 23:03 Last Admin: 07/04/22 23:06 Dose: 5 mg Documented By: RSJoaquín Ondansetron HCl (Ondansetron Inj 2 Mg/Ml 2 Ml Vial) 4 mg IV NOW STA Stop: 07/04/22 20:40 Last Admin: 07/04/22 21:02 Dose: 4 mg Documented By: VICKY Medical Decision Making Laboratory Data Attestation: I reviewed the patient's lab results. 07/04/22 21:03 07/04/22 21:03 Lab Results 07/04/22 07/04/2207/04/23 Range/Units 21:03 21:03 23:10 WBC 6.44 (4.8-10.8) K/ul RBC 3.85 L (4.20-5.40) M/uL Hgb 12.7 (12.0-16.0) g/dl Hct 38.6 (37.0-47.0) % MCV 100.3 H (80.0-100.0) fL MCH 33.0 (25.0-34.0) pg MCHC 32.9 (32.0-36.0) g/dL RDW Std Deviation 47.6 H (36.4-46.3) fL RDW Coeff of Luis 12.9 (11.5-14.5) % Plt Count 242 (130-400) K/uL MPV 10.7 (9.4-12.4) fL Immature Gran % (Auto) 0.2 % Neut % (Auto) 70.6 % Lymph % (Auto) 16.8 % [place] % (Auto) 9.6 % Eos % (Auto) 2.2 % Baso % (Auto) 0.6 % Neut # (Auto) 4.55 (1.40-6.50) K/uL Lymph # (Auto) 1.08 L (1.2-3.4) K/uL [place] # (Auto) 0.62 H (0.11-0.59) K/uL Eos # (Auto) 0.14 (0-0.50) K/uL Baso # (Auto) 0.04 (0-0.2) K/uL Immature Gran # (Auto) 0.01 (0.01-0.20) K/uL Sodium 133 L (136-145) mmol/L Potassium 4.0 (3.5-5.1) mmol/L Chloride 98 (98-107) mmol/L Carbon Dioxide 30 (21-32) mmol/L Anion Gap 5 (3-11) BUN 18 (6-23) mg/dl Creatinine 0.64 (0.6-1.2) mg/dl Est Cr Clr Drug Dosing 59.9 ml/min Est GFR ( Amer) 95.6 ml/min Est GFR (Non-Af Amer) 82.5 ml/min BUN/Creatinine Ratio 28.1 H (10-20) Glucose 132 H (70-99(Fasting)) mg/dl POC Glucose (70-99) mg/dl Calcium 9.2 (8.5-10.1) mg/dl Total Bilirubin 0.4 (0.2-1.0) mg/dl Direct Bilirubin 0.0 (0-0.2) mg/dl AST 19 (13-39) U/L ALT 16 (7-52) U/L Alkaline Phosphatase 47 (34-104) U/L Total Protein 7.2 (6.0-8.3) gm/dl Albumin 4.1 (3.4-5.0) gm/dl Lipase 38 (11-82) U/L SARS-CoV-2, RNA, NAAT NEGATIVE (NEGATIVE) 07/04/22 Range/Units 23:20 WBC (4.8-10.8) K/ul RBC (4.20-5.40) M/uL Hgb (12.0-16.0) g/dl Hct (37.0-47.0) % MCV (80.0-100.0) fL MCH (25.0-34.0) pg MCHC (32.0-36.0) g/dL RDW Std Deviation (36.4-46.3) fL RDW Coeff of Luis (11.5-14.5) % Plt Count (130-400) K/uL MPV (9.4-12.4) fL Immature Gran % (Auto) % Neut % (Auto) % Lymph % (Auto) % [place] % (Auto) % Eos % (Auto) % Baso % (Auto) % Neut # (Auto) (1.40-6.50) K/uL Lymph # (Auto) (1.2-3.4) K/uL [place] # (Auto) (0.11-0.59) K/uL Eos # (Auto) (0-0.50) K/uL Baso # (Auto) (0-0.2) K/uL Immature Gran # (Auto) (0.01-0.20) K/uL Sodium (136-145) mmol/L Potassium (3.5-5.1) mmol/L Chloride (98-107) mmol/L Carbon Dioxide (21-32) mmol/L Anion Gap (3-11) BUN (6-23) mg/dl Creatinine (0.6-1.2) mg/dl Est Cr Clr Drug Dosing ml/min Est GFR ( Amer) ml/min Est GFR (Non-Af Amer) ml/min BUN/Creatinine Ratio (10-20) Glucose (70-99(Fasting)) mg/dl POC Glucose 113 H (70-99) mg/dl Calcium (8.5-10.1) mg/dl Total Bilirubin (0.2-1.0) mg/dl Direct Bilirubin (0-0.2) mg/dl AST (13-39) U/L ALT (7-52) U/L Alkaline Phosphatase (34-104) U/L Total Protein (6.0-8.3) gm/dl Albumin (3.4-5.0) gm/dl Lipase (11-82) U/L SARS-CoV-2, RNA, NAAT (NEGATIVE) Imaging Data Attestation: I personally reviewed and interpreted this imaging study as follows: My Impression: Acute abdominal series: Chest x-ray negative. Airway clear. No pneumothorax. No consolidation. No cardiomegaly or cephalization.. No free air under the diaphragm. No fractures of the skeletal structures. Rotated film. Nonspecific bowel gas pattern. Constipation. Radiologist's Impression: Gallbladder Ultrasound 07/04/22 20:53 Exam(s): US GALLBLADDER EXAM: US Abdomen Limited, Gallbladder CLINICAL HISTORY: Reason for exam: ruq pain. TECHNIQUE: Real-time ultrasound of the right upper quadrant with image documentation. COMPARISON: No relevant prior studies available. FINDINGS: Gallbladder: Distended gallbladder with gallbladder sludge. Mild palpable thickening measures 4 mm. Trace pericholecystic free fluid. Positive Yuen sign. Findings are concerning for acute cholecystitis. Common bile duct: 5 mm common bile duct. No stones. No dilation. Pancreas: Unremarkable as visualized. IMPRESSION: Distended gallbladder with gallbladder sludge. Mild palpable thickening measures 4 mm. Trace pericholecystic free fluid. Positive Yuen sign. Findings are concerning for acute cholecystitis. Electronically signed by: Roni Moore MD 07/04/22 22:35 PM ECG Data Attestation: I personally reviewed and interpreted this ECG as follows: Indication: abdominal pain Rate (beats per minute): 66 Rhythm: normal sinus Findings: + 1st degree AV block; no ST depression, no ST elevation or no prolonged QT MDM Narrative 2038: The patient was evaluated in room A11. A complete history and physical exam was performed Cardiac monitoring: An order was placed for continuous cardiac monitoring. The monitor shows a rate of 60 with sinus rhythm interpreted by me 2306: Vital signs stable. Patient continues to have nausea subsequent doses of antiemetics ordered for the patient. Labs show white blood cell count of 6.44 hemoglobin 12.7 platelet count 242. LFTs and alkaline phosphatase are within normal limits. Lipase within normal limits. Ultrasound does show findings consistent with acute cholecystitis.Acute abdominal series shows nonspecific bowel gas pattern with constipation chest x-ray negative. Discussed the case with general surgery Wilder Galindo on-call for Dr. Galindo general surgery who states admit to medicine. Les Diggs ordered for the patient. Dr. Joey thomas any hospitalist team will be notified. Impression & Plan Acute cholecystitis Discharge Plan Visit Data Chief Complaint: Flank Pain Stated Complaint: NAUSEA,PAIN BELOW RIB CAGE, BACK PAIN ED Provider: Abiodun Hurt Discharge Problem: Acute cholecystitis Patient Disposition: Admitted As Inpatient Forms Stand Alone Forms: [facility] [place] [employer] Prescriptions Prescriptions: No Action famotidine 20 mg tablet 20 mg PO DAILY Qty: 90 3RF omeprazole 40 mg capsule,delayed release(DR/EC) 40 mg PO DAILY Qty: 90 1RF Prolia 60 mg/mL syringe 60 mg subcut .COMPLEX Qty: 1 2RF Rx Instructions: 60 mg subcut inj every 6 mo; buspirone 5 mg tablet See Rx Instructions PO BID Qty: 180 10RF Rx Instructions: 2 in am, 2 in afternoon (if needed), 2 in pm daily pt aware dose change cholecalciferol (vitamin D3) 2,000 unit capsule 2,000 units PO 2XWK Qty: 30 Rx Instructions: MONDAY & DAYS ferrous sulfate 325 mg (65 mg iron) tablet,delayed release (DR/EC) 325 mg PO 2XWK Rx Instructions: MONDAYS & THURSDAYS calcium carbonate-vitamin D3 600 mg(1,500mg) -400 unit tablet 1 tab PO BID Referrals Referrals: Maya Chung CRNP [Primary Care Provider] -
[2022-07-05] MEDS ORDERED: ACETAMINOPHEN 500 MG TAB PO PRN (00:45)
[2022-07-05] MEDS ORDERED: GLUCOSE 10 TAB/TUBE PO PRN (01:26)
[2022-07-05] MEDS ORDERED: GLUCOSE 40% GEL 15 GM TUBE PO PRN (01:26)
[2022-07-05] MEDS ORDERED: CARBOHYDRATES FOR HYPOGLYCEMIA PO PRN (01:26)
[2022-07-05] MEDS ORDERED: DEXTROSE 50% 50 ML SYRINGE IV PRN (01:26)
[2022-07-05] MEDS ORDERED: GLUCAGON FOR INJ 1 MG VIAL SQ PRN (01:26)
[2022-07-05] MEDS ORDERED: busPIRone 5 MG TAB PO PRN (04:38)
[2022-07-05 06:40] LABS: Basophils # (auto) 0.02 K/uL (0-0.2); Basophils % (auto) 0.3 %; Eosinophils # (auto) 0.04 K/uL (0-0.50); Eosinophils % (auto) 0.7 %; Hemoglobin 10.6 g/dl (12.0-16.0); Immature Granulocytes # (auto) 0.01 K/uL (0.01-0.20); Immature Granulocytes % (auto) 0.2 %; Lymphocytes # (auto) 1.23 K/uL (1.2-3.4); Lymphocytes % (auto) 20.9 %; Mean Corpuscular Hemoglobin 33.3 pg (25.0-34.0); Mean Corpuscular Hgb Conc 33.1 g/dL (32.0-36.0); Mean Corpuscular Volume 100.6 fL (80.0-100.0); Mean Platelet Volume 10.8 fL (9.4-12.4); Monocytes # (auto) 0.68 K/uL (0.11-0.59); Monocytes % (auto) 11.5 %; Neutrophils # (auto) 3.91 K/uL (1.40-6.50); Neutrophils % (auto) 66.4 %; Platelet Count 198 K/uL (130-400); RDW Coefficient of Variation 13.1 % (11.5-14.5); RDW Standard Deviation 48.6 fL (36.4-46.3); Red Blood Count 3.18 M/uL (4.20-5.40); White Blood Count 5.89 K/ul (4.8-10.8)
[2022-07-05 06:48] LABS: Albumin Globulin Ratio 1.5 (0.9-2); Albumin Level 3.2 gm/dl (3.4-5.0); BUN Creatinine Ratio 25.4 (10-20); Bilirubin,Total 0.4 mg/dl (0.2-1.0); Calcium 7.6 mg/dl (8.5-10.1); Est GFR (African American) 98.2 ml/min; Est GFR (Non-African American) 84.8 ml/min; Globulin 2.2 gm/dl (2.5-4.0); Potassium 4.5 mmol/L (3.5-5.1); Total Protein 5.4 gm/dl (6.0-8.3)
--- NOTE | 2022-07-05 07:13 | Hospitalist Progress Note ---
Date of Service July 05, 2022 Assessment & Plan Plan 07/05/22 00:48 Rey Alves MD Plan 82 y/o female w/ PMHx of gastric bypass, macrocytic anemia, GERD, anxiety, migraines, PAD, and HLD who presents w/ RUQ pain since today 2/2 acute cholecystitis. Suggested by RUQ US; pos Yuen's sign, distended gallbladder, mild palpable thickening 4mm. No leukocytosis. VSS. Amox allergy, was started on IV cipro+Flagyl Gen surg consulted; IV abx. Will reassess in AM. Patient inquired if her previous surgeon would be available. 07/05/22 00:48 Rey lAves MD History of gastric bypass (None) 07/05/22 00:48 Rey Alves MD Plan Noted. Also w/ reported ulceration prior to bypass. Will hold off on NSAIDs. 07/05/22 00:48 Rey Alves MD Macrocytic anemia (None) 07/05/22 00:48 Rey Alves MD Plan Chronic. Currently not anemic. MCV persistently mildly elevated. Has had normal folate and elev B12 in past. Continue iron supp 2x/wk. 07/05/22 00:48 Rey Alves MD GERD (gastroesophageal reflux disease) (None) 07/05/22 00:48 Rey Alves MD Plan Continue home PPI and H2 bailey. 07/05/22 00:48 Rey Alves MD Anxiety (None) 07/05/22 00:48 Rey Alves MD Plan Continue Buspar. 07/05/22 00:48 Rey Alves MD Hypercholesterolemia (Chronic) 07/05/22 00:48 Rey Alves MD Plan Not on statin. Per prior notes, was deescalated off statins several years ago w/ consideration of her age. 07/05/22 00:48 Rey Alves MD Plan Text Plan FEN/GI: NPO. Hold off on fluids w/ questionable hypervolemic status and reported chronic dyspnea. Check BNP in AM. No echo in EMR. ppx: SCDs only while awaiting surg eval code: full dispo: med tele Admission and Anticipated Discharge Date Admission Date: July 04, 2022 Review of Systems Review of Systems: All systems reviewed & are unremarkable except as noted in HPI & below Results & Data Results & Data ([place]) Vital Signs (Past 12 Hours) Vital Signs Temp Pulse Pulse Pulse Resp BP BP 07/05/22 03:56 37.0 C 68 20 108/61 07/05/22 03:56 36.9 C 71 16 144/68 H 07/05/22 03:49 68 07/04/22 23:30 83 22 07/04/22 23:30 127/67 07/04/22 23:28 138/73 07/04/22 23:28 85 32 H 07/04/22 23:20 82 30 H 07/04/22 23:10 89 28 H 07/04/22 23:00 69 23 07/04/22 22:50 64 14 07/04/22 22:40 61 20 07/04/22 22:36 63 20 07/04/22 21:40 62 18 07/04/22 21:30 61 19 07/04/22 21:21 65 15 07/04/22 20:39 69 07/04/22 21:09 66 18 07/04/22 21:09 65 18 163/77 H 07/04/22 20:36 36.5 C 61 20 158/77 H Pulse Ox O2 Del Method 07/05/22 03:56 97 Room Air 07/05/22 03:56 96 Room Air 07/05/22 03:49 07/04/22 23:30 99 07/04/22 23:30 07/04/22 23:28 07/04/22 23:28 97 07/04/22 23:20 98 07/04/22 23:10 99 07/04/22 23:00 96 07/04/22 22:50 98 07/04/22 22:40 84 L 07/04/22 22:36 07/04/22 21:40 98 07/04/22 21:30 98 07/04/22 21:21 97 07/04/22 20:39 07/04/22 21:09 99 Room Air 07/04/22 21:09 99 Room Air 07/04/22 20:36 99
[2022-07-05 07:23] LABS: Appearance Urine Clear (Clear); Bacteria Urine Automated Negative (Negative); Bilirubin Urine Negative (Negative); Blood Urine 1+ (Negative); Color Urine Dark Yellow; Epithelial Cell Urine Auto 20-30 /lpf (0-5); Glucose Urine UA Negative (Negative); Ketones Urine Trace (Negative); Leukocyte Esterase Urine 1+ (Negative); Nitrite Urine Negative (Negative); Protein Urine Trace (Negative); RBC Urine Automated >30 /hpf (0-4); Specific Gravity Urine 1.023 (1.000-1.030); Urobilinogen Urine Negative (Negative)
--- NOTE | 2022-07-05 07:29 | XRay Report ---
XR abdomen 2V w PA chest CLINICAL HISTORY: abd pain TECHNIQUE: 2 views of the abdomen were obtained. A single view of the chest was obtained. Comparison: Comparison is made to chest radiograph 04/17/2022 FINDINGS: No lines and tubes are seen. Cardiomegaly is noted. Reticular interstitial opacities are seen. No fidencio dence of pleural effusion or pneumothorax. Degenerative changes are seen with scoliosis in the abdomen. Surgical clips are seen in the upper abd omen. The bowel gas pattern is nonobstructive. A moderate amount of stool is noted within the large b owel. IMPRESSION: Nonobstructive bowel gas pattern. ACT 112: Negative or not required by law. Electronically signed by: Jackson Amin M.D. 07/05/2022 7:27 AM
[2022-07-05] MEDS: PANTOprazole 40 MG TAB PO SCH (08:42)
[2022-07-05] MEDS: FAMOTIDINE 20 MG TAB PO SCH (08:42)
[2022-07-05] MEDS: busPIRone 5 MG TAB PO SCH ×2 (08:42→22:49)
[2022-07-05] MEDS: metroNIDAZOLE 500 MG/100 ML BAG IV SCH ×2 (08:44→18:15)
--- NOTE | 2022-07-05 09:55 | Surgery Progress Note ---
Date of Service July 05, 2022 Assessment & Plan (1) Acute cholecystitis: Plan: Continue to keep n.p.o. keep on IV antibiotics We will plan on laparoscopic cholecystectomy, possible open, possible intraoperative cholangiogram today Consent was obtained, risk discussed including bleeding, infection, bile leak, ductal injury, injury to surrounding structures (2) History of gastric bypass: Admission and Anticipated Discharge Date Admission Date: July 04, 2022 Subjective Patient seen and examined. Abdominal pain is improved but still present. Afebrile. Stable. No nausea or vomiting. Review of Systems Constitutional: no fever and no chills Physical Exam Constitutional: WD/WN, vitals as above Gastrointestinal (Abdomen): Inspection/Auscultation: abdomen normal to inspection; abdomen not distended Percussion/Palpation: + abdomen tender (Right upper quadrant to deep palpation) and abdomen soft; no guarding, abdomen not rigid and no hernia Results & Data ([facility]) Vital Signs (Past 12 Hours) Vital Signs Temp Pulse Pulse Pulse Resp BP BP 07/05/22 07:26 36.8 C 71 113/63 07/05/22 03:56 37.0 C 68 20 108/61 07/05/22 03:56 36.9 C 71 16 144/68 H 07/05/22 03:49 68 07/04/22 23:30 83 22 07/04/22 23:30 127/67 07/04/22 23:28 138/73 07/04/22 23:28 85 32 H 07/04/22 23:20 82 30 H 07/04/22 23:10 89 28 H 07/04/22 23:00 69 23 07/04/22 22:50 64 14 07/04/22 22:40 61 20 07/04/22 22:36 63 20 Pulse Ox O2 Del Method 07/05/22 07:26 98 Room Air 07/05/22 03:56 97 Room Air 07/05/22 03:56 96 Room Air 07/05/22 03:49 07/04/22 23:30 99 07/04/22 23:30 07/04/22 23:28 07/04/22 23:28 97 07/04/22 23:20 98 07/04/22 23:10 99 07/04/22 23:00 96 07/04/22 22:50 98 07/04/22 22:40 84 L 03/13/23 22:36 PG Care Time/CCT Total # of Minutes Spent Total Time Spent with Patient: Total time spent is greater than 50% in coordination of care (as documented) at patient's floor/unit and/or counseling patient: Coding Level of Care Code 00682 SUB INP/OBS CARE 05/18MIN Diagnoses Acute cholecystitis K81.0 History of gastric bypass Z98.84
[2022-07-05] MEDS ORDERED: CIPROFLOXACIN / D5W 400 MG/200 ML BAG IV SCH (11:30)
[2022-07-05] MEDS ORDERED: PROPOFOL IV EMULSION 10 MG/ML 20 ML VIAL IV ONE (14:44)
[2022-07-05] MEDS ORDERED: LIDOCAINE 2% MPF LOCAL 5 ML VIAL INFIL ONE (14:44)
[2022-07-05] MEDS ORDERED: ROCURONIUM BROMIDE 10 MG/ML 5 ML VIAL IV ONE ×3 (14:44→16:11)
[2022-07-05] MEDS ORDERED: DEXAMETHASONE SOD INJ 4 MG/ML VIAL ONE (15:00)
[2022-07-05] MEDS ORDERED: fentaNYL citrate PF 100 MCG/2 ML VIAL ONE (15:01)
[2022-07-05] MEDS ORDERED: BUPIVACAINE/EPINEPHRINE 0.25% 1:200,000 30 ML VIAL ONE (15:09)
[2022-07-05] MEDS ORDERED: ATROPINE SULFATE 0.1 MG/ML 10ML SYR IV PRN (15:28)
[2022-07-05] MEDS ORDERED: ePHEDrine sulfate 50 MG/ML AMP IV PRN (15:28)
[2022-07-05] MEDS ORDERED: ONDANSETRON INJ 2 MG/ML 2 ML VIAL IV PRN (15:28)
--- NOTE | 2022-07-05 15:28 | Anesthesiology Consultation ---
Date of Service July 05, 2022 Assessment & Plan Chart Review Chart Review: Acceptable Risk for Surgery and Patient NOT seen in Pre Admission Testing Consults Requested none ASA ASA2 Proposed Anesthesia Anesthesia Type: General Risk / Benefits Reviewed With: PT / POA / Parent / Guardian, Accepts Plan and Informed Consent Obtained History Surgery Operation Date: 07/05/22 09:20 Proposed Procedures p Laparoscopic Cholecystectomy Possible Moira - Emiliano Galindo, DO Height/Weight Height: 5 ft 5 in Weight: 66.7 kg Allergies Allergy/AdvReac Type Severity Reaction Status Date / Time amoxicillin Allergy Intermediate HIVES/NAUSE Verified 07/04/22 21:55 A codeine AdvReac Intermediate MIGRAINES Verified 07/04/22 21:55 morphine AdvReac Intermediate MIGRAINES Verified 07/04/22 21:55 Medications Home Medications Medication Instructions Recorded Confirmed Last Taken calcium carbonate 600 mg-vitamin 1 tab PO BID 12/08/18 07/04/22 07/04/22 08:00 D3 10 mcg (400 unit) tablet cholecalciferol (vitamin D3) 50 2,000 units PO 2XWK #30 caps 12/08/18 07/04/22 07/04/22 mcg (2,000 unit) capsule ferrous sulfate 325 mg (65 mg 325 mg PO 2XWK 12/08/18 07/04/22 07/04/22 iron) tablet,delayed release famotidine 20 mg tablet 20 mg PO DAILY #90 tabs 12/28/21 07/04/22 07/04/22 omeprazole 40 mg capsule,delayed 40 mg PO DAILY #90 caps 02/22/22 07/04/22 07/04/22 release buspirone 5 mg tablet See Rx Instructions PO BID anxiety 03/22/22 07/04/22 07/04/22 08:00 #180 tabs denosumab 60 mg/mL subcutaneous 60 mg subcut .COMPLEX #1 mL 05/30/22 07/04/22 06/02/22 syringe (Prolia) Active Medications Generic Name Dose Route Start Last Admin Trade Name Freq PRN Reason Stop Dose Admin Buspirone HCl 10 mg 07/05/22 09:00 07/05/22 08:42 Buspirone 5 Mg Tab PO 08/04/22 08:59 10 mg BID OZ Administration Famotidine 20 mg 07/05/22 09:00 07/05/22 08:42 Famotidine 20 Mg Tab PO 08/04/22 08:59 20 mg DAILY OZ Administration Ciprofloxacin 400 mg in 200 mls @ 100 mls/hr 07/05/22 11:30 07/05/22 13:34 Cipro / D5w IV 07/15/22 11:29 Infused Q12H OZ Infusion Protocol Metronidazole 500 mg in 100 mls @ 100 mls/hr 07/05/22 10:00 07/05/22 10:13 Flagyl IV 07/15/22 09:59 Infused Q8H OZ Infusion Pantoprazole Sodium 40 mg 07/05/22 09:00 07/05/22 08:42 Pantoprazole 40 Mg Tab PO 08/04/22 08:59 40 mg DAILY OZ Administration NPO Date Last Intake of Fluids: 07/04/22 Time Last Intake of Fluids: 18:00 Last Intake of Fluids Comment: sip of water with meds today Date Last Intake of Solids: 07/04/22 Past Medical History Medical History History of colon cancer Never a smoker No history of alcohol use No illicit drug use Exercise / Class Metabolic Activity II 4-5 Yardwork/Stairs/Walk up hill Past Family History Family History Mother Cancer Ovarian cancer Pancreatic cancer Father Myocardial infarction Acute Cardiac disorder Denies family history of Prostate cancer Breast cancer Colorectal cancer Past Surgical History Surgical History History of abdominal surgery History of partial mastectomy of right breast S/P lumpectomy, right breast S/P partial gastrectomy Past Anesthesia History No Hx of Anesthesia Complications and No Family Hx of Anesthesia Complications History of PONV No Hx of PONV and No Hx of Motion Sickness Social History Smoking Status: Never smoker Hx Alcohol Use: No Hx Substance Use: No Physical Exam Vital Signs Last Vital Signs Temp 36.4 C L 07/05/22 14:26 Pulse 94 H 07/05/22 14:26 Resp 18 07/05/22 14:26 BP 124/78 07/05/22 14:26 Pulse Ox 99 07/05/22 14:26 O2 Del Method Room Air 07/05/22 14:26 ENMT Mouth: no dentition abnormality Thyromental Distance: > or= 3.5 Finger Breadths Mallampati Class: II Neck normal visual inspection Respiratory normal respiratory effort Auscultation: lungs clear to auscultation bilaterally Cardiovascular Rate/Rhythm: regular rate and regular rhythm Psychiatric Orientation: alert Testing Laboratory Results 07/05/22 06:06 07/05/22 06:06 Urine Color Dark Yellow 07/05/22 Unknown Urine Appearance Clear (Clear) 07/05/22 Unknown Urine pH 7.0 (4.5-7.5) 07/05/22 Unknown Ur Specific [place] 1.023 (1.000-1.030) 07/05/22 Unknown Urine Protein Trace (Negative) H 07/05/22 Unknown Urine Glucose (UA) Negative (Negative) 07/05/22 Unknown Urine Ketones Trace (Negative) H 07/05/22 Unknown Urine Nitrite Negative (Negative) 07/05/22 Unknown Ur Leukocyte Esterase 1+ (Negative) H 07/05/22 Unknown Urine WBC (Auto) 1-5 /hpf (0-5) 07/05/22 Unknown Urine RBC (Auto) >30 /hpf (0-4) H 07/05/22 Unknown U Hyaline Cast (Auto) 1-5 /lpf (0-5) 07/05/22 Unknown U Epithel Cells (Auto) 20-30 /lpf (0-5) H 07/05/22 Unknown Urine Bacteria (Auto) Negative (Negative) 07/05/22 Unknown 07/05/22 07/05/22 11:12 07:51 POC Glucose 100 H 103 H
[2022-07-05] MEDS ORDERED: SUGAMMADEX SODIUM 200 MG/2 ML VIAL IV ONE (15:59)
[2022-07-05] MEDS ORDERED: ONDANSETRON INJ 2 MG/ML 2 ML VIAL ONE (16:00)
--- NOTE | 2022-07-05 16:30 | Post Operative Brief Note ---
PG Immediate Post Op with CF Date of Surgery July 05, 2022 Pre & Post Diagnosis Operation Date: 07/05/22 09:20 Pre-Op Diagnosis: Acute cholecystitis. Post-Op Diagnosis: Acute cholecystitis. I identified the patient and participated in the time-out.: Yes Procedure Operation Date: 07/05/22 09:20 Actual Procedures p Laparoscopic Cholecystectomy - Emiliano Galindo DO Surgeon Emiliano Galindo DO Coding Technician Kelsey Collins PA-C Estimated Blood Loss 10 Findings See Below Acutely inflamed thickened gallbladder consistent with acute cholecystitis Specimens Specimen Description: A. Gallbladder and contents. Anesthesia Type General Complications none Disposition Disposition: Recovery Room
--- NOTE | 2022-07-05 16:33 | Operative Report ---
PG Post Operative Report Pre & Post Diagnosis Operation Date: 07/05/22 09:20 Pre-Op Diagnosis: Acute cholecystitis. Post-Op Diagnosis: Acute cholecystitis. I identified the patient and participated in the time-out.: Yes Procedure Operation Date: 07/05/22 09:20 Actual Procedures p Laparoscopic Cholecystectomy - Emiliano Galindo DO Surgeon Emiliano Galindo DO Dye Beck Reel Operator Kelsey Collins PA-C Estimated Blood Loss 10 Findings See Below Acutely inflamed thickened gallbladder consistent with acute cholecystitis Fluids see anesthesia record Specimens Gallbladder to pathology Drains None Anesthesia Type General Complications none Disposition Disposition: Recovery Room Indications 82-year-old female with acute cholecystitis Description of Procedure The patient was brought to the operating room and placed in the supine position with both arms extended. At this time she underwent general endotracheal anesthesia without any problems. She was given appropriate pre-operative antibiotics. Her abdomen prepped and draped in the usual sterile fashion. A timeout was called, the procedure was verified as Laparoscopic cholecystectomy, possible open, possible intra-operative cholangiogram. Surgical, nursing and anesthesia teams agreed and the procedure was begun. After injection of 0.25% Marcaine with epinephrine, a left upper quadrant incision was made and carried down to the fascia using S-retractors. The abdominal wall was then elevated with towel clamps and abdomen entered using the Veress needle confirming position using the saline drop test. Pneumoperitoneum was established. 5mm trocar was placed. Laparoscope was introduced. No injury from entry into the abdomen was visualized after inspection of the abdomen. She did have the falciform adhesed to the abdominal wall in her previous upper midline incision. This was taken down using scissors cautery. Three further ports were placed under direct visualization. One 11mm in the right mid abdomen and two 5mm, 1 in the right flank and 1 at the umbilicus. The camera was then placed at the umbilical port. At this time the abdomen was inspected and the gallbladder identified. The gallbladder itself was erythematous, acutely inflamed and thickened consistent with acute cholecystitis. The gallbladder itself was also very floppy with very loose attachments to the liver. The gallbladder fundus was grasped and retracted cephalad. The gallbladder infundibulum was then grasped and retracted laterally. The cystic duct and cystic artery were then identified and skeletonized. The critical view of safety was obtained. They were both then clipped twice proximally and once distally and then divided using scissors. The gallbladder was then taken off of the liver bed using electrocautery and placed in an endocatch bag and removed from the right mid abdominal port. The liver bed was then inspected and no bile leak or bleeding was evident. The subxiphoid port was then closed using 0-Vicryl using the suture passer. The trocars were then removed under direct visualization and no bleeding was present. Abdomen was desufflated. The skin was then closed using 4-0 Monocryl in a subcuticular fashion. Surgical glue was applied. Needle and sponge counts were correct x 2. At this time the patient was awoken from anesthesia and extubated having remained stable throughout the entire case. The patient was then transported to PACU in stable condition. The physician assistant sales center manager was present scrubbed for the entire case. She was essential in positioning, prepping and draping the patient, driving the laparoscope, retraction and exposure, closure of the incisions and placement of the dressings. I attest to the content of the Intraoperative Record and any orders documented therein. Any exceptions are noted below.
[2022-07-05] MEDS: fentaNYL citrate PF 100 MCG/2 ML VIAL IV PRN ×4 (16:56→17:25)
--- NOTE | 2022-07-05 17:11 | Medical Student Progress Note ---
Date of Service July 05, 2022 Assessment & Plan (1) Acute cholecystitis: Plan: Simona is a 82y/o female patient with a past medical history of gastric bypass, GERD, macrocytic anemia, hyperlipidemia, PAD, and migraines who presented to the ED on 07/04/22 with abdominal pain and is currently being treated for acute cholecystitis. Plan Acute Cholecystitis: -Patient is feeling better today. Her pain is significantly decreased and the nausea is gone. -Continue ciprofloxacin 400mg IV and metronidazole 500mg IV. -Continue n.p.o. -Laparoscopic cholecystectomy, possibly open, and possible intraoperative cholangiogramscheduled for later today. History of gastric bypass: -Procedure due to precipitating ulceration. -Will hold off on NSAIDs. GERD: -Stable. -Continue pantoprazole 40mg. Anxiety: -Continue buspar 10mg. Admission and Anticipated Discharge Date Admission Date: July 04, 2022 Supervising Attestation I personally examined the patient and verified all funk points of history and exam, discussed case, and agree with decision making with Sabino ALFARO Seen preop. Feeling okay. Pain under reasonable control. Understands diagnosis and plan. Vitals noted, in general she is awake and alert pleasant no distress. HEENT normocephalic atraumatic mucous membranes moist. Abdomen is soft not very tender, although given that she is preop, light palpation at the most, skin without rashes pallor or icterus. Neuro without focal deficits or lateralizing signs. CBC, basic metabolic panel noted. Cholecystitiscontinue antibiotics, for operating room later today. Macrocytic anemiasuspect drop is dilutional, but continue to follow. Otherwise as above, DVT prophylaxis currently SCDs. Postop, if she is at all immobile her hospital stay appears like it will be prolonged, then we will add pharmacologic prophylaxis. Subjective Prior to my evaluation: Simona Wilson is a 82y/o female patient with a past medical history of gastric bypass, GERD, macrocytic anemia, hyperlipidemia, PAD, and migraines who presented to the ED on 07/04/22 with abdominal pain. The patient reported the pain is located in the right upper quadrant and radiates to her back. The patient stated the pain onset after eating lunch along with nausea. The patient denies vomiting but did experience some dry heaving. The patient reported this has not happened in the past but did report that she has experienced nausea before and after meals for several weeks now. The patient denied fever or chills. The patient also denies recent travel, known sick contacts, or recent antibiotic use. Initial labs in ED showed a normal WBC count, 6.44, as well as liver function tests within normal ranges. Chest/abdominal x-ray was unremarkable. Gallbladder ultrasound revealed distended gallbladder with sludge, mild thickening measuring 4mm, trace pericholecystic free fluid, and positive Yuen's sign. General surgery was consulted. It is suspected this patient is presenting with acute cholecystitis. Patient was started on ciprofloxacin 400mg IV and metronidazole 500mg IV, fluids, Zofran 4mg IV, and placed on n.p.o. General surgery is planning on performing cholecystectomy later today. My evaluation: The patient states she is feeling much better today. She reports her pain was 10/10 yesterday upon arrival to the ED and is 0/10 this morning. The patient states the nausea is gone. The patient denies chest pain, shortness of breath, vomiting, constipation, diarrhea, headache, lightheadedness, or dizziness. Review of Systems Constitutional: no fever, no chills, no headache, no lightheadedness, no dizziness. Respiratory: no shortness of breath, no cough, no wheezing. Cardiovascular: Additional Comments: no chest pain, no palpitations. Gastrointestinal: +abdominal pain, no nausea, no vomiting, no constipation, no diarrhea. Physical Exam Constitutional: Alert and oriented, in no acute distress. Respiratory: Lungs are clear to auscultation bilaterally. Breath sounds are equal on both sides. No rales, wheezes, or rhonchi. Cardiovascular: Regular rate and rhythm. No murmur, rubs, or gallops. Capillary refill <2 seconds. No peripheral edema. Gastrointestinal (Abdomen): Normal bowel sounds. Abdomen soft and nondistended. RUQ tenderness to palpation. Positive Yuen's sign. Results & Data ([facility]) Vital Signs (Past 12 Hours) Vital Signs Temp Pulse Pulse Pulse Resp BP Pulse Ox 07/05/22 11:19 36.8 C 91 H 20 123/73 96 07/05/22 10:49 07/05/22 07:26 36.8 C 71 113/63 98 07/05/22 03:56 37.0 C 68 20 108/61 97 07/05/22 03:56 36.9 C 71 16 144/68 H 96 07/05/22 03:49 68 O2 Del Method 07/05/22 11:19 Room Air 07/05/22 10:49 Room Air 07/05/22 07:26 Room Air 07/05/22 03:56 Room Air 07/05/22 03:56 Room Air 07/05/22 03:49
--- NOTE | 2022-07-05 17:42 | Billing Data ---
Date of Service July 05, 2022 Coding Level of Care Code 87934 SUB INP/OBS CARE
[2022-07-05] MEDS ORDERED: HYDROmorphone INJ 0.5 MG/0.5 ML SYR IV PRN (18:07)
[2022-07-05] MEDS ORDERED: oxyCODONE HCL IR 5 MG TAB (IMMEDIATE RELEASE) PO PRN (18:07)
[2022-07-05] MEDS: LACTATED RINGER'S 1,000 ML IV SCH (18:14)
--- NOTE | 2022-07-05 18:53 | Anesthesiology Progress Note ---
Date of Service July 05, 2022 Anesthesia Post Procedure Vital Signs Vital Signs: Temp Pulse Pulse Pulse Resp BP BP 07/05/22 14:11 90 07/05/22 07:15 66 07/05/22 17:50 69 20 138/62 07/05/22 17:40 67 16 138/82 07/05/22 17:10 70 14 138/63 07/05/22 17:00 81 20 131/65 07/05/22 17:30 66 14 136/63 07/05/22 17:20 37.0 C 65 12 143/74 H 07/05/22 16:50 87 18 128/79 07/05/22 16:43 36.1 C L 84 20 142/66 H 07/05/22 14:26 36.4 C L 94 H 18 124/78 07/05/22 11:19 36.8 C 91 H 20 123/73 07/05/22 10:49 07/05/22 07:26 36.8 C 71 113/63 07/05/22 03:56 37.0 C 68 20 108/61 07/05/22 03:56 36.9 C 71 16 144/68 H 07/05/22 03:49 68 07/04/22 23:30 83 22 07/04/22 23:30 127/67 07/04/22 23:28 138/73 07/04/22 23:28 85 32 H 07/04/22 23:20 82 30 H 07/04/22 23:10 89 28 H 07/04/22 23:00 69 23 07/04/22 22:50 64 14 07/04/22 22:40 61 20 07/04/22 22:36 63 20 07/04/22 21:40 62 18 07/04/22 21:30 61 19 07/04/22 21:21 65 15 07/04/22 20:39 69 07/04/22 21:09 66 18 07/04/22 21:09 65 18 163/77 H 07/04/22 20:36 36.5 C 61 20 158/77 H Pulse Ox O2 Del Method O2 Flow Rate 07/05/22 14:11 07/05/22 07:15 07/05/22 17:50 98 Room Air 07/05/22 17:40 98 Room Air 07/05/22 17:10 93 Room Air 07/05/22 17:00 95 Room Air 07/05/22 17:30 98 Room Air 07/05/22 17:20 99 Room Air 07/05/22 16:50 97 Oxymask 3 07/05/22 16:43 97 Oxymask 6 07/05/22 14:26 99 Room Air 07/05/22 11:19 96 Room Air 07/05/22 10:49 Room Air 07/05/22 07:26 98 Room Air 07/05/22 03:56 97 Room Air 07/05/22 03:56 96 Room Air 07/05/22 03:49 07/04/22 23:30 99 07/04/22 23:30 07/04/22 23:28 07/04/22 23:28 97 07/04/22 23:20 98 07/04/22 23:10 99 07/04/22 23:00 96 07/04/22 22:50 98 07/04/22 22:40 84 L 07/04/22 22:36 07/04/22 21:40 98 07/04/22 21:30 98 07/04/22 21:21 97 07/04/22 20:39 07/04/22 21:09 99 Room Air 07/04/22 21:09 99 Room Air 07/04/22 20:36 99 Pain Intensity Right Upper Abdomen: Pain Intensity: 3 Transfer of Care Handoff Completed per policy Notes Mental Status: alert / awake / arousable Patient Amnestic to Procedure: Yes Nausea / Vomiting: adequately controlled Pain: adequately controlled Airway Patency, RR, SpO2: stable & adequate BP & HR: stable & adequate Hydration State: stable & adequate Anesthetic Complications: no major complications apparent
--- NOTE | 2022-07-05 21:15 | Billing Data ---
Date of Service July 05, 2022 Coding Level of Care Code 03311 INT INP/OBS CARE
[2022-07-05] MEDS: ONDANSETRON INJ 2 MG/ML 2 ML VIAL IV PRN (21:58)
[2022-07-05] MEDS: oxyCODONE HCL IR 5 MG TAB (IMMEDIATE RELEASE) PO PRN (22:49)
[2022-07-06] MEDS: LACTATED RINGER'S 1,000 ML IV SCH (05:23)
--- NOTE | 2022-07-06 06:04 | Electrocardiogram Report ---
Test Reason : Blood Pressure : / mmHG Vent. Rate : 066 BPM Atrial Rate : 066 BPM P-R Int : 206 ms QRS Dur : 098 ms QT Int : 408 ms P-R-T Axes : 063 -19 039 degrees QTc Int : 427 ms Poor data quality, interpretation may be adversely affected Normal sinus rhythm Possible Left atrial enlargement Septal infarct (cited on or before 17-APR-2022) Abnormal ECG When compared with ECG of 17-APR-2022 05:21, Questionable change in initial forces of Anterior leads Confirmed by Germain Hays ([id number]) on 07/06/2022 6:04:28 AM Referred By: REFERRED SELF Confirmed By:Germain Hays
[2022-07-06] MEDS: oxyCODONE HCL IR 5 MG TAB (IMMEDIATE RELEASE) PO PRN (07:15)
[2022-07-06 07:29] LABS: Basophils # (auto) 0.05 K/uL (0-0.2); Basophils % (auto) 0.9 %; Eosinophils # (auto) 0.12 K/uL (0-0.50); Hematocrit (blood only) 33.7 % (37.0-47.0); Hemoglobin 11.1 g/dl (12.0-16.0); Immature Granulocytes # (auto) 0.01 K/uL (0.01-0.20); Immature Granulocytes % (auto) 0.2 %; Lymphocytes # (auto) 1.43 K/uL (1.2-3.4); Lymphocytes % (auto) 24.4 %; Mean Corpuscular Hemoglobin 33.6 pg (25.0-34.0); Mean Corpuscular Hgb Conc 32.9 g/dL (32.0-36.0); Mean Corpuscular Volume 102.1 fL (80.0-100.0); Mean Platelet Volume 10.8 fL (9.4-12.4); Monocytes # (auto) 0.86 K/uL (0.11-0.59); Monocytes % (auto) 14.7 %; Neutrophils # (auto) 3.39 K/uL (1.40-6.50); Neutrophils % (auto) 57.8 %; Platelet Count 189 K/uL (130-400); RDW Coefficient of Variation 13.4 % (11.5-14.5); RDW Standard Deviation 50.9 fL (36.4-46.3); White Blood Count 5.86 K/ul (4.8-10.8)
--- NOTE | 2022-07-06 07:39 | Surgery Progress Note ---
Date of Service July 06, 2022 Assessment & Plan (1) Acute cholecystitis: Plan: POD#1 lap selvin WBC 5.8, Hbg 11. BMP pending. Vital signs are stable Reports some mild nausea and pain. continue on pain meds/anti emetics as needed She is not hungry, but will advance her to fulls this AM for bfast. If tolerates may continue to advance Abdomen soft, expected janell incisional discomfort to palpation, incisions c/d/i, mild distention Encourage OOB and pulmonary toilet If pain controlled, diet tolerated, and pt stable she may be discharged later today from our point of view F/u in clinic with Dr. Galindo in 2 weeks Admission and Anticipated Discharge Date Admission Date: July 04, 2022 Supervising Physician Co-Signing Physician Notes I personally saw and evaluated the patient with Kelsey Clolins PA-C and agree with the assessment and plan. 82-year-old female with acute cholecystitis, now postoperative day 1 lap aroscopic cholecystectomy She is doing well 1 day after surgery She tolerating clear liquids, advance as tolerated Incision dressings are clean dry and intact She can be discharged from a surgical standpoint if she tolerates her diet and we will arrange for follow-up in 2 weeks Subjective Patient is feeling okay this morning. Reports some expected post surgical pain made worse with movement, but overall tolerable. Has been drinking water without issue, but reports a mild nausea and little appetite. Physical Exam Physical Exam: awake/alert Constitutional: no acute distress Respiratory: normal respiratory effort Gastrointestinal (Abdomen): Inspection/Auscultation: + abdomen distended and + abdominal surgical incision (c/d/i with surgical dressings in place) Percussion/Palpation: + abdomen tender (expected janell incisional discomfort to palpation) and abdomen soft Results & Data ([facility]) Vital Signs (Past 12 Hours) Vital Signs Temp Pulse Pulse Resp BP Pulse Ox O2 Del Method 07/06/22 02:56 37.3 C 62 18 124/65 95 Room Air 07/06/22 00:18 69 07/06/22 00:17 63 07/05/22 22:51 37.7 C H 69 18 124/69 96 Room Air 07/05/22 22:07 Room Air 07/05/22 20:47 36.8 C 72 18 144/70 H 98 Room Air 07/05/22 19:38 36.6 C 72 18 154/72 H 99 Room Air PG Care Time/CCT Total # of Minutes Spent Total Time Spent with Patient: Total time spent is greater than 50% in coordination of care (as documented) at patient's floor/unit and/or counseling patient: Coding Level of Care Code 18945 Post Operative Follow-Up Diagnoses Acute cholecystitis K81.0
[2022-07-06 07:52] LABS: Albumin Globulin Ratio 1.4 (0.9-2); Albumin Level 3.2 gm/dl (3.4-5.0); BUN Creatinine Ratio 17.5 (10-20); Bilirubin,Total 0.5 mg/dl (0.2-1.0); Calcium 7.7 mg/dl (8.5-10.1); Creatinine Clr Calc Pharmacy 67.3 ml/min; Est GFR (African American) 99.4 ml/min; Est GFR (Non-African American) 85.7 ml/min; Globulin 2.3 gm/dl (2.5-4.0); Magnesium 1.9 mg/dl (1.7-2.4); Phosphorus 3.2 mg/dl (2.5-4.9); Potassium 3.7 mmol/L (3.5-5.1); Total Protein 5.5 gm/dl (6.0-8.3)
[2022-07-06] MEDS: busPIRone 5 MG TAB PO SCH (08:28)
[2022-07-06] MEDS: PANTOprazole 40 MG TAB PO SCH (08:28)
[2022-07-06] MEDS: FAMOTIDINE 20 MG TAB PO SCH (08:28)
[2022-07-06] MEDS: ONDANSETRON INJ 2 MG/ML 2 ML VIAL IV PRN ×2 (11:20→17:30)
[2022-07-06 16:30] VITALS: BP 146/69; TEMP 98.4; O2SAT 93
[2022-07-06 17:44] VITALS: PULSE 69
--- NOTE | 2022-07-06 18:44 | Discharge Summary ---
Date of Service July 06, 2022 Admission HPI Per Admitting Provider 82 y/o female w/ PMHx of gastric bypass, macrocytic anemia, GERD, anxiety, migraines, PAD, and HLD who presents w/ RUQ pain that started today. It radiates to her right side/back. This started after lunch at noon. She has had nausea and dry heaving. She denies having fever or chills. She has mild dyspnea at baseline. Patient states she had gastric bypass many years ago because of ulceration near gastroesophageal junction. Currently, she still has RUQ pain, though is more comfortable. She has had several months of nausea. ED course: IV cipro+Flagyl. 1L NSS bolus. Gen surg consulted in ED. IV abx. Further plan TBD in AM. Admission Exam Per Admitting Provider General: Grossly A&O. NAD. Cooperative. HEENT: Atraumatic, normocephalic. EOMI. + JVD on right at 2 finger breadths. Pulm: CTAB. -wheezes, -rales, -rhonchi. No respiratory distress. Cardiac: RRR, -mrg. 1-2+ bilat lower extremity edema. Abdominal: Nondistended, soft. RUQ TTP, no rebound. Patient winced on deeper palpation of RUQ. Msk: Moving all extremities. Neuro: Strength and sensation of extremities intact. Principal Diagnosis Acute cholecystitis Discharge Exam General: No acute distress HEENT: PERRLA. Normal conjunctiva, anicteric sclera. Oropharynx normal. Respiratory: Normal respiratory effort, CTABL. Cardiovascular: RRR without murmurs, gallops, or rubs. No edema. GI: Soft abdomen with normal bowel sounds heard on auscultation. Mild incisional tenderness to palpation without rebound or guarding. Incisions are clean, dry, and intact. Neuro: Alert and oriented x3. Discharge Data Allergies Allergy/AdvReac Type Severity Reaction Status Date / Time amoxicillin Allergy Intermediate HIVES/NAUSE Verified 07/04/22 21:55 A codeine AdvReac Intermediate MIGRAINES Verified 07/04/22 21:55 morphine AdvReac Intermediate MIGRAINES Verified 07/04/22 21:55 Consultations 07/04/22 23:07 ED Decision to Admit Stat 07/05/22 00:21 Consult General Surgery Routine Procedures Performed Operation Date: 07/05/22 09:20 Actual Procedures p Laparoscopic Cholecystectomy - Emiliano Galindo DO Ordered Studies 07/04/22 20:53 US gallbladder Stat Hospital Course (1) Acute cholecystitis: Acute cholecystitis -Past medical history of gastric bypass, macrocytic anemia, GERD, presented with acute postprandial RUQ pain. -Positive sonographic Yuen sign on ultrasound, with evidence of gallbladder distention, palpable thickening of 4 mm. No leukocytosis. Patient hemodynamically stable. -Surgery consulted. Recommended cholecystectomy. -Patient underwent cholecystectomy without complications, passed flatus soon after procedure. Tolerated gradual advancement of diet. -Cleared for discharge by surgery on POD 1. Sent home on Zofran for residual postprandial nausea. Pain control OTC Tylenol 500 mg every 4 hours or 1000 mg every 8 hours. GERD: Continue home PPI, H2 bailey Anxiety: Continue BuSpar (2) History of gastric bypass: (3) Macrocytic anemia: (4) GERD (gastroesophageal reflux disease): (5) Anxiety: (6) Hypercholesterolemia: Total Time Total Time Spent Total Time Spent (In Minutes): <30 Discharge Plan Discharge Items Patient Disposition: Home - Self-Care Reason For Visit: RUQ PAIN Discharge Diagnosis: laparoscopic cholecystectomy Activity: Per Instructions section Lifting: No more than 10 pounds Bathing Comment: may shower; no soaking in tubs/pools Exercise/Sports: Wait until after follow-up appointment Driving/Machine Use: no driving if taking narcotics for pain Non-emergency contact: Primary Care Provider and Surgeon Call non-emergency contact if: you have any medication questions, your symptoms worsen, your pain is worsening, you have a fever, your temperature is above 101.5, your wound has increased redness, your wound has increased drainage and your wound pain has increased Follow-up/Referrals: Maya Chung CRNP [Primary Care Provider] - Emiliano Galindo DO [Physician] - (Please call to schedule follow up in clinic within 2 weeks) Diet: Regular Addtl Attending Provider Instructions: You may purchase Tylenol and/or Ibuprofen over the counter if needed for additional pain control over the next few days. Take per manufacturers instructions. You may remove your outer surgical dressings on 07/07/22 and shower. You will hav e small white bandages called steri strips on underneath that should remain in place, the steri strips will fall off on their own within 7-10 days Pending Studies at Discharge: Yes Studies:: surgical pathology Stand-Alone Forms: [facility], Smoking Cessation Medications and DC Order Prescriptions: New ondansetron 4 mg tablet,disintegrating 4 mg PO Q6H PRN (Reason: nausea and vomiting) Qty: 30 0RF Continued famotidine 20 mg tablet 20 mg PO DAILY Qty: 90 3RF omeprazole 40 mg capsule,delayed release(DR/EC) 40 mg PO DAILY Qty: 90 1RF Prolia 60 mg/mL syringe 60 mg subcut .COMPLEX Qty: 1 2RF Rx Instructions: 60 mg subcut inj every 6 mo; buspirone 5 mg tablet See Rx Instructions PO BID Qty: 180 10RF Rx Instructions: 2 in am, 2 in afternoon (if needed), 2 in pm daily pt aware dose change cholecalciferol (vitamin D3) 2,000 unit capsule 2,000 units PO 2XWK Qty: 30 Rx Instructions: MONDAY & THURSDAYS ferrous sulfate 325 mg (65 mg iron) tablet,delayed release (DR/EC) 325 mg PO 2XWK Rx Instructions: MONDAYS & THURSDAYS calcium carbonate-vitamin D3 600 mg(1,500mg) -400 unit tablet 1 tab PO BID Discharge Orders: Discharge Order (Routine); Ordered 07/06/22 Ordered By: Rhona Mckenna Admission Data Admit Date/Time: 07/04/22 23:59 Attending Provider: Allan Lemons Admit Provider: Rey Alves Primary Care Provider: Maya Chung Other Providers: Thomas Hernandez ; Emiliano Galindo Other Interventions: Discharge Summary Assessment (RN) Last Done: 07/06/22 17:42 Supervising Physician Co-Signing Physician Notes Ipersonally examined the patient and verified all funk points of history and exam, discussed case, and agree with decision making with Dr Mckenna seen postop. pain tolerable. PO intake reasonable. would like to go home Vitals noted, in general she is awake and alert pleasant no distress. HEENT normocephalic atraumatic mucous membranes moist. Abdomen is soft mildly distended mildly tender no guarding rebound or rigidity Cholecystitissafe for home. as per surgery/as above. no rec for ongoing abx by surgery. no concerning s/s sepsis/infection - will hold on further abx. outpt f/u Macrocytic anemiasuspect drop is dilutional, stabilized. outpt f/u. mild hyponatremia - improved Otherwise as above Resident Activity Tracking Resident Involvement: Resident Care Provided Care Provided: Adult [facility]
--- NOTE | 2022-07-06 19:32 | Billing Data ---
Date of Service July 06, 2022 Coding Level of Care Code 37723 IN/OBS DISCH 30 MIN/LESS
== END 2022-07-06 18:03 | disposition home or self-care (01) ==
LOC: ED 20:32 → INTOOBSV 23:59 → 2N 23:59 → SUATTDRO 23:59 → 2N 07-05 01:12
DX: K21.9 Gastro-esophageal reflux disease without esophagitis; K81.0 Acute cholecystitis; Z88.5 Allergy status to narcotic agent; Z88.1 Allergy status to other antibiotic agents; E78.00 Pure hypercholesterolemia, unspecified; D53.9 Nutritional anemia, unspecified; Z98.84 Bariatric surgery status; Z79.899 Other long term (current) drug therapy